=== PATIENT | female | born 1965 | race Caucasian/White ===

== ENCOUNTER 2016-09-16 12:24 | Inpatient (IN) ==
--- NOTE | 2016-09-16 12:49 | Emergency Department Note ---
Disposition Clinical Impression: Colitis, Rectal bleeding Disposition: Admitted As Inpatient Condition: Good Time of Disposition: 17:19 Nausea/Vomiting/Diarrhea HPI - General Chief complaint: ED Nausea/Vomiting/Diarrhea Stated complaint: N/V/D, rectal bleeding Time Seen by Provider: 09/16/16 12:35 Source: patient Mode of arrival: ambulatory Limitations: no limitations Nursing Notes Reviewed: Yes Vital Signs Reviewed: Yes - History of Present Illness HPI Narrative: 51-year-old female history of hypertension, diabetes presents to the ED for nausea and rectal bleeding. Prior to my evaluation patient had an obvious bright red blood with blood clot bowel movement in the toilet. Patient reports earlier today around 8 o'clock patient was feeling nauseated and dry heaving when she passed as a result. She went up to use the bathroom and had some loose diarrhea followed by bright red blood and clots. Since then she has had 3 episodes of passing bright red blood clots. Reports associated lower abdominal cramping. She reports taking meloxicam on a daily basis for the past 2 years as well as Alleve for arthritis. No colonoscopy in the past. No history of colon cancer. No history of bleeding disorder. Reports history of laporascopy for endometriosis several years ago. Dr. Anthony is her PCP. Denies any chest pain, shortness of breath, recent illness, fever, or cough. Denies any urinary symptoms or vaginal bleeding. No history of cardiac disease. Father had CA at age 42. Denies use of anticoagulants. - Related Data Home Medications Medication Instructions Recorded Confirmed Chlorthalidone 25 mg PO DAILY 09/16/16 09/16/16 Dicyclomine [Bentyl] 20 mg PO QID PRN 09/16/16 09/16/16 Fluticasone Propionate Nasal 50 mcg NS DAILY PRN 09/16/16 09/16/16 [Flonase] Insulin Glargine,Hum.rec.anlog 50 unit SQ HS 09/16/16 09/16/16 [Lantus Solostar] Insulin LISPRO [Humalog Kwikpen 0 unit SQ TIDWM 09/16/16 09/16/16 U-100] LORazepam [Ativan] 0.5 mg PO BID PRN 09/16/16 09/16/16 Loratadine [Claritin] 10 mg PO DAILY PRN 09/16/16 09/16/16 Meloxicam [Mobic] 15 mg PO DAILY 09/16/16 09/16/16 Metformin HCl [Metformin HCl ER] 2,000 mg PO DAILY 09/16/16 09/16/16 Pantoprazole Sodium [Protonix] 40 mg PO DAILY 09/16/16 09/16/16 Promethazine [Phenergan] 25 mg PO Q8HR PRN 09/16/16 09/16/16 Simvastatin [Zocor] 20 mg PO HS 09/16/16 09/16/16 Venlafaxine XR (24 HR) [Effexor XR] 150 mg PO DAILY 09/16/16 09/16/16 Allergies Allergy/AdvReac Type Severity Reaction Status Date / Time cefdinir [From Omnicef] Allergy Hives Verified 02/05/16 15:34 fluoxetine [From Prozac] Allergy Hives Verified 02/05/16 15:34 lansoprazole [From Prevacid] Allergy Hives Verified 02/05/16 15:34 clarithromycin [From Biaxin] AdvReac Hives Verified 02/05/16 15:33 All systems ED: reviewed and negative except as stated. Constitutional: Denies: fever, chills Cardiovascular: Denies: chest pain Respiratory: Denies: cough, dyspnea Gastrointestinal: Reports: abdominal pain, nausea, diarrhea, hematochezia. Denies: vomiting, hematemesis Genitourinary: Denies: urgency, dysuria, frequency Integumentary: Denies: rash, abrasion Neurological: Denies: headache, weakness, numbness, paresthesias Psychiatric: Denies: anxiety Hematological/Lymphatic: Denies: easy bleeding Past Medical History - Past Medical History Attestation: Yes The following information was validated with the patient. Source: patient Medical history: Reports: diabetes, hyperlipidemia, hypertension Psychiatric history: Reports: anxiety, depression BIODIESEL TECHNOLOGY MANAGER history: Reports: no BIODIESEL TECHNOLOGY MANAGER history - Social History Smoking Status: Never smoker Smokeless Tobacco Status: No Alcohol use: Reports: rarely Drug use: Reports: none Physical Exam - General Limitations: no limitations General appearance: alert, in no apparent distress - Head Head exam: atraumatic, normocephalic, normal inspection - Eye Eye exam: Present: normal appearance, PERRL, EOMI - ENT ENT exam: normal exam, normal oropharynx, mucous membranes moist - Neck Neck exam: Present: normal inspection, full ROM, trachea midline - Chest Chest inspection: Present: normal inspection, symmetric chest wall rise - Respiratory Respiratory exam: Present: normal lung sounds bilaterally - Cardiovascular Cardiovascular exam: Present: regular rate, normal rhythm, normal heart sounds - Abdominal Exam Abdominal exam: Present: soft, tenderness, normal bowel sounds. Absent: Non- Tender, distention, guarding, rebound, rigidity Abdominal tenderness: Present: suprapubic, diffuse, mild - Rectal Exam Credit Analysis Manager present during exam: Yes Rectal exam: Present: normal inspection, normal rectal tone, heme (+) stool, bloody stool. Absent: hemorrhoids, mass, tenderness, other (NO FISTULAS OR FISSURES) - Extremities Exam Extremities exam: Present: normal inspection, full ROM, normal capillary refill. Absent: tenderness, pedal edema, calf tenderness - Back Exam Back exam: Present: normal inspection, full ROM. Absent: tenderness, CVA tenderness (R), CVA tenderness (L) - Neurological Exam Neurological exam: Present: alert, oriented X3 - Psychiatric Psychiatric exam: Present: normal affect, normal mood - Skin Skin exam: Present: warm, dry, intact, normal color. Absent: rash, cyanosis Course Course Narrative: 51-year-old female presents with rectal bleeding. Prior to my evaluation patient had an obvious bright red blood with blood clots in toilet bowl. She denies any use of anticoagulants. She does report using Meloxicam and Alleve. Patient appears in no acute distress. Vitals are stable. Abdomen is soft and nondistended. She has lower abdominal discomfort and tenderness. Negative McBurney's point negative Rovsing's sign. Rectal exam showed gross bloody stool. The signs of hemorrhoids, fissures, or fistula. Will check her goags, basic labs, hemoglobin, and CT scan. Disposition pending results, may need admission for colonoscopy. - Reevaluation(s) Reevaluation #1: Elevated leukocytosis. Creatinin is 1.36 and appears baseline with prior. CT of the abdomen and pelvis reveals colonic wall thickening and mild colitis. Will treat with flagyl and cipro for possible infectious. This is likely cause for her pain. Hemoglobin is within normal limits. Continues to have multiple episodes of bloody bowel movements. She may need colonoscopy, will consult with Endoscopy Dr. Franco. Patient is in agreement with plan. Time: 14:59 - Consultations Consultation #1: Spoke with Dr. Franco, cannot scope today but can prep for possible scope this weekend. Treating for inflammatory colitis with metronidazole and cipro. IV Protonix given. Time: 15:52 Consultation #2: Spoke with lukas Ledesma to admit for colitis and rectal bleeding with vomiting , no further orders at this time. Time: 16:48 Vital Signs Temperature 97.4 F L 09/16/16 12:27 Pulse Rate 88 09/16/16 12:27 Respiratory Rate 18 09/16/16 12:27 Blood Pressure 152/82 09/16/16 12:27 O2 Sat by Pulse Oximetry 100 09/16/16 12:27 Temperature 97.4 F L 09/16/16 12:27 Pulse Rate 88 09/16/16 12:27 Respiratory Rate 16 09/16/16 17:30 Blood Pressure 167/65 09/16/16 17:30 O2 Sat by Pulse Oximetry 100 09/16/16 12:27 Oxygen Delivery Oxygen Delivery Room Air Nausea/Vomiting/Diarrhea - Medical Records Medical records reviewed: Yes I reviewed the patient's medical records. - Lab Data Lab results reviewed: Yes I reviewed the patient's lab results. Result diagrams: 09/16/16 12:55 09/16/16 12:55 Lab Results 09/16/16 09/16/16 09/16/16 Range/Units 12:55 12:55 12:55 WBC 15.9 H (4.3-11.1) K/mcL RBC 4.68 (3.82-4.97) M/mcL Hgb 13.9 (11.5-15.4) g/dL Hct 41.4 (35.3-44.9) % MCV 88.5 (83.0-100.0) fL MCH 29.7 (28.0-33.3) pg MCHC 33.6 (31.6-35.5) g/dL RDW 13.0 (11.5-14.5) % Plt Count 267 (140-400) K/mcL MPV 9.9 (9.4-12.4) fL Immature Gran % 0.5 (0-4) % Seg Neutrophils % 85.4 % Lymphocytes % 9.1 % Monocytes % 4.5 % Eosinophils % 0.1 % Basophils % 0.4 % Neutrophils # 13.5 H (1.6-8.9) K/mcL Lymphocytes # 1.4 (0.6-4.6) K/mcL Monocytes # 0.7 (0.0-1.3) K/mcL Eosinophils # 0.0 (0.0-0.6) K/mcL Basophils # 0.1 (0.0-0.2) K/mcL PT 11.6 (9.4-12.1) Seconds INR 1.1 APTT 25.3 L (26.0-36.0) Seconds Sodium 138 (136-145) mEq/L Potassium 4.6 H (3.5-4.5) mEq/L Chloride 102 (98-109) mEq/L Carbon Dioxide 22 (19-29) mEq/L BUN 27 H (7-20) mg/dL Creatinine 1.36 H (0.57-1.11) mg/dL Est GFR ( Amer) 49 L (> 60) Est GFR (Non-Af Amer) 41 L (> 60) BUN/Creatinine Ratio 20 (6-26) Glucose 393 H (70-99) mg/dL Calculated Osmolality 307 H (280-300) Calcium 9.9 (8.6-10.8) mg/dL Total Bilirubin 0.3 (0.2-1.2) mg/dL AST 13 (5-34) Units/L ALT 17 (0-55) Units/L Alkaline Phosphatase 98 (38-126) Units/L Serum Total Protein 7.6 (6.0-8.3) g/dL Albumin 4.0 (3.5-5.0) g/dL Globulin 3.6 H (2.4-3.5) g/dL Albumin/Globulin Ratio 1.1 (1.1-2.2) Lipase 67 (8-78) Units/L Urine Color (Yellow) Urine Clarity (Clear) Urine pH (5.0-8.0) pH Units Ur Specific Clifford (1.010-1.025) Urine Protein (Neg-Trace) mg/dL Urine Glucose (UA) (Normal) mg/dL Urine Ketones (Negative) mg/dL Urine Blood (Negative) Urine Nitrite (Negative) Urine Bilirubin (Negative) Urine Urobilinogen (Normal) mg/dL Ur Leukocyte Esterase (Negative) Urine Microscopic RBC (0-3) per hpf Urine Microscopic WBC (0-3) per hpf Ur Squamous Epith Cells (None-Few) per lpf Urine Bacteria (None-Few) per hpf Hyaline Casts (None-Few) per lpf Granular Casts (None Seen) per lpf WBC Casts (None Seen) per lpf Urine Mucus (Few) Ur Culture Indicated? (NO) 09/16/16 Range/Units 14:06 WBC (4.3-11.1) K/mcL RBC (3.82-4.97) M/mcL Hgb (11.5-15.4) g/dL Hct (35.3-44.9) % MCV (83.0-100.0) fL MCH (28.0-33.3) pg MCHC (31.6-35.5) g/dL RDW (11.5-14.5) % Plt Count (140-400) K/mcL MPV (9.4-12.4) fL Immature Gran % (0-4) % Seg Neutrophils % % Lymphocytes % % Monocytes % % Eosinophils % % Basophils % % Neutrophils # (1.6-8.9) K/mcL Lymphocytes # (0.6-4.6) K/mcL Monocytes # (0.0-1.3) K/mcL Eosinophils # (0.0-0.6) K/mcL Basophils # (0.0-0.2) K/mcL PT (9.4-12.1) Seconds INR APTT (26.0-36.0) Seconds Sodium (136-145) mEq/L Potassium (3.5-4.5) mEq/L Chloride (98-109) mEq/L Carbon Dioxide (19-29) mEq/L BUN (7-20) mg/dL Creatinine (0.57-1.11) mg/dL Est GFR ( Amer) (> 60) Est GFR (Non-Af Amer) (> 60) BUN/Creatinine Ratio (6-26) Glucose (70-99) mg/dL Calculated Osmolality (280-300) Calcium (8.6-10.8) mg/dL Total Bilirubin (0.2-1.2) mg/dL AST (5-34) Units/L ALT (0-55) Units/L Alkaline Phosphatase (38-126) Units/L Serum Total Protein (6.0-8.3) g/dL Albumin (3.5-5.0) g/dL Globulin (2.4-3.5) g/dL Albumin/Globulin Ratio (1.1-2.2) Lipase (8-78) Units/L Urine Color Dark Yellow (Yellow) Urine Clarity Cloudy A (Clear) Urine pH 5.5 (5.0-8.0) pH Units Ur Specific Clifford 1.029 H (1.010-1.025) Urine Protein 30 H (Neg-Trace) mg/dL Urine Glucose (UA) >=1000 H (Normal) mg/dL Urine Ketones 15 H (Negative) mg/dL Urine Blood Negative (Negative) Urine Nitrite Negative (Negative) Urine Bilirubin Small H (Negative) Urine Urobilinogen Normal (Normal) mg/dL Ur Leukocyte Esterase Small H (Negative) Urine Microscopic RBC 5-15 H (0-3) per hpf Urine Microscopic WBC 15-30 H (0-3) per hpf Ur Squamous Epith Cells Many H (None-Few) per lpf Urine Bacteria None Seen (None-Few) per hpf Hyaline Casts Many H (None-Few) per lpf Granular Casts Few H (None Seen) per lpf WBC Casts Few H (None Seen) per lpf Urine Mucus Many H (Few) Ur Culture Indicated? YES A (NO) - Radiology Data Radiology results reviewed: Yes I reviewed the patient's radiology results. Abdomen/Pelvis CT 09/16/16 13:46 IMPRESSION: Scattered areas of colonic wall thickening are seen, suggesting mild colitis in the appropriate clinical scenario Tiny nonobstructing right renal stone D/ / Davon Davidson MD / Davon Davidson MD Interpreting Provider: Davon Davidson MD - EKG Data EKG attestation: Yes I reviewed and interpreted this EKG. EKG shows normal: sinus rhythm, axis, intervals, QRS complexes Rate: normal Rhythm: NSR [place]/QRS: normal T wave inversions noted in: II When compared to previous EKG there are: no significant changes Interpretation: no acute changes, normal EKG, unchanged when compared to prior tracing (date) (02/05/16) Attestation Statement - Attestation Attestation: I examined this patient and my medical decision-making was reviewed with the BACKWINDER/PA/Advanced Practice Nurse/Resident Physician. I agree with the documented findings, disposition and treatment plan as described except to the extent set forth below. Patient to the emergency department with abdominal pain vomiting and diarrhea. Patient has felt bad today. States she has had prior food poisoning felt like this. The difference is she is passing bright red blood. One episode prior to arrival and one right after she arrived here. Bright red with clots. On exam she has tenderness over the left side of her abdomen. Plan. CT scans shows a distal colitis. Likely the cause of her bleeding. Hemoglobin stable. Admitted to medicine. Consult to Dr. Franco who also evaluated her in the department.
[2016-09-16] MEDS ORDERED: Ondansetron 4 MG/2 ML VIAL IVP ONE (13:03)
[2016-09-16 13:18] LABS: Basophils # 0.1 K/mcL (0.0-0.2); Basophils % 0.4 %; Eosinophils % 0.1 %; Hematocrit 41.4 % (35.3-44.9); Hemoglobin 13.9 g/dL (11.5-15.4); Immature Granulocytes % 0.5 % (0-4); Lymphocytes # 1.4 K/mcL (0.6-4.6); Lymphocytes % 9.1 %; Mean Corpuscular HGB Conc 33.6 g/dL (31.6-35.5); Mean Corpuscular Hemoglobin 29.7 pg (28.0-33.3); Mean Corpuscular Volume 88.5 fL (83.0-100.0); Mean Platelet Volume 9.9 fL (9.4-12.4); Monocytes # 0.7 K/mcL (0.0-1.3); Monocytes % 4.5 %; Neutrophils # 13.5 K/mcL (1.6-8.9); Platelet Count 267 K/mcL (140-400); Red Blood Count 4.68 M/mcL (3.82-4.97); Segmented Neutrophils % 85.4 %
[2016-09-16 13:25] LABS: Albumin/Globulin Ratio 1.1 (1.1-2.2); Bilirubin,Total 0.3 mg/dL (0.2-1.2); Calcium 9.9 mg/dL (8.6-10.8); Globulin 3.6 g/dL (2.4-3.5); Potassium 4.6 mEq/L (3.5-4.5); Total Protein 7.6 g/dL (6.0-8.3)
[2016-09-16 13:26] LABS: INR 1.1; Prothrombin Time 11.6 Seconds (9.4-12.1)
[2016-09-16 13:29] LABS: Activated Partial Thrombo Time 25.3 Seconds (26.0-36.0)
[2016-09-16 14:14] LABS: Bilirubin,Urine Small (Negative); Blood,Urine Negative (Negative); Clarity,Urine Cloudy (Clear); Color,Urine Dark Yellow (Yellow); Glucose,Urine (UA) >=1000 mg/dL (Normal); Ketones,Urine 15 mg/dL (Negative); Leukocyte Esterase,Urine Small (Negative); Nitrite,Urine Negative (Negative); PH,Urine 5.5 pH Units (5.0-8.0); Protein,Urine 30 mg/dL (Neg-Trace); Specific Gravity,Urine 1.029 (1.010-1.025); Urobilinogen,Urine Normal (Normal)
[2016-09-16 14:16] LABS: Bacteria,Urine None Seen per hpf (None-Few); Squamous Epithelial Cell,Urine Many per lpf (None-Few); WBC,Urine 15-30 per hpf (0-3)
[2016-09-16 14:36] LABS: Granular Casts,Urine Few per lpf (None Seen); Hyaline Casts,Urine Many per lpf (None-Few)
[2016-09-16 14:37] LABS: Mucus,Urine Many (Few); White Blood Cell Casts,Urine Few per lpf (None Seen)
[2016-09-16] MEDS ORDERED: MetroNIDAZOLE 500 MG/100 ML 500 MG/100 ML BAG IVPB ONE (15:06)
[2016-09-16] MEDS ORDERED: Pantoprazole 40 MG VIAL IVP ONE (16:01)
[2016-09-16] MEDS ORDERED: Naloxone 0.4 MG/ML INJ IVP PRN (16:56)
[2016-09-16] MEDS ORDERED: Ondansetron 4 MG/2 ML VIAL IVP PRN (17:01)
[2016-09-16] MEDS ORDERED: D5% in Water 1,000 ML IV PRN (17:08)
[2016-09-16] MEDS ORDERED: Dextrose Gel 15 GM PO PRN ×2 (17:08)
[2016-09-16] MEDS ORDERED: *HR* Dextrose 50 % in Water (Syg) 50 ML SYRINGE IVP PRN (17:08)
--- NOTE | 2016-09-16 17:42 | Internal Med History&Physical ---
Date of Encounter: 09/16/16 Time of Encounter: 17:25 Assessment and Plan (1) Colitis Current visit: Yes Status: Acute Patient with acute colitis. Concern for inflammatory/infectious colitis. Will treat with IV antibiotics. Keep nothing by mouth. IV hydration. Observation in the hospital for now. (2) Rectal bleeding Current visit: Yes Status: Acute Patient having bleeding per rectum. Will monitor blood counts. Patient takes NSAIDs regularly. Will start IV Protonix. She will need upper and lower GI endoscopy once her acute inflammation subsides. At moderate risk for complications. (3) Essential hypertension Current visit: Yes Status: Chronic Monitor blood pressure. Currently elevated likely due to pain. Will continue home medications and follow blood pressure and adjust medications accordingly. (4) Diabetes mellitus Current visit: Yes Status: Chronic Uncontrolled. Blood sugars are currently elevated. Will start sliding scale insulin and long-acting insulin. Monitor blood sugars closely. Patient will be nothing by mouth. Will check blood sugars every 4 hours for now. Qualifiers: Diabetes mellitus type: type 2 Diabetes mellitus complication status: with hyperglycemia Diabetes mellitus technician terminal and repeater insulin use: with technician terminal and repeater use Qualified Code(s): E11.65 - Type 2 diabetes mellitus with hyperglycemia; Z79.4 - group home (current) use of insulin (5) Hyperlipidemia Current visit: Yes Status: Chronic Continue statin. Qualifiers: Hyperlipidemia type: mixed hyperlipidemia Qualified Code(s): E78.2 - Mixed hyperlipidemia Internal Medicine - H&P: HPI Chief complaint: Abdominal pain, nausea or vomiting, diarrhea and bleeding per rectum Admitted From: Emergency Dept Plans for Post Hospital Care: Home History of present illness: Ms. Quevedo is a 51 year old female with history of diabetes, hypertension and hyperlipidemia presented to the ER with complaints of nausea vomiting and diarrhea along with bleeding per rectum. Her symptoms began this morning. Initially she began to have pain rated 7 out of 10 in severity at its worst, in her midabdomen that was cramping in nature. She then had a bowel movement and since then she has been having bleeding per rectum. She had another episode in the ER. She does have heartburn and has been taking Aleve and meloxicam every day. He has never previously had any episodes of bleeding per rectum nor has she had any hematemesis. She has never had a colonoscopy either. She denies any dizziness or lightheadedness. Past Med Surg Social Fam HX - Past Medical History Attestation: Yes The following information was validated with the patient. Medical history: diabetes, hyperlipidemia, hypertension Psychiatric history: anxiety, depression - Social History Smoking Status: Never smoker Smokeless Tobacco Status: No Alcohol use: rarely Drug use: none - Additional Family History Additional family history: Reviewed and found to be noncontributory at this time Internal Medicine - H&P: Meds Chlorthalidone 25 mg PO DAILY 09/16/16 [History] Dicyclomine [Bentyl] 20 mg PO QID PRN 09/16/16 [History] Fluticasone Propionate Nasal [Flonase] 50 mcg NS DAILY PRN 09/16/16 [History] Insulin Glargine,Hum.rec.anlog [Lantus Solostar] 50 unit SQ HS 09/16/16 [History ] Insulin LISPRO [Humalog Kwikpen U-100] 0 unit SQ TIDWM 09/16/16 [History] LORazepam [Ativan] 0.5 mg PO BID PRN 09/16/16 [History] Loratadine [Claritin] 10 mg PO DAILY PRN 09/16/16 [History] Meloxicam [Mobic] 15 mg PO DAILY 09/16/16 [History] Metformin HCl [Metformin HCl ER] 2,000 mg PO DAILY 09/16/16 [History] Pantoprazole Sodium [Protonix] 40 mg PO DAILY 09/16/16 [History] Promethazine [Phenergan] 25 mg PO Q8HR PRN 09/16/16 [History] Simvastatin [Zocor] 20 mg PO HS 09/16/16 [History] Venlafaxine XR (24 HR) [Effexor XR] 150 mg PO DAILY 09/16/16 [History] Allergies cefdinir [From Omnicef] Allergy (Verified 02/05/16 15:34) Hives fluoxetine [From Prozac] Allergy (Verified 02/05/16 15:34) Hives lansoprazole [From Prevacid] Allergy (Verified 02/05/16 15:34) Hives clarithromycin [From Biaxin] Adverse Reaction (Verified 02/05/16 15:33) Hives All Systems PM: A 10-system review of systems was performed and is negative for pertinent findings except as documented above in the HPI. - Constitutional Constitutional: no chills, no fever(s), no night sweats - EENT Eyes: no change in vision, no discharge, no pain, no photophobia Ears: no ear discharge, no ear pain, no tinnitus Nose, mouth and throat: no dysphagia, no nasal discharge, no neck pain, no sore throat - Cardiovascular Cardiovascular ROS IM: no chest pain, no diaphoresis, no dyspnea, no lightheadedness, no palpitations, no syncope - Respiratory Respiratory: no cough, no dyspnea, no wheezing, no excessive phlegm production - Gastrointestinal Gastrointestinal: abdominal pain, diarrhea, hematochezia, nausea, vomiting, no hematemesis, no melena - Genitourinary Genitourinary: no change in urinary stream, no dysuria, no flank pain, no hematuria - Musculoskeletal Musculoskeletal ROS IM: no numbness, no tingling - Integumentary Integumentary IM: no rash, no unusual bruising - Neurological Neurological ROS: no confusion, no convulsions, no focal weakness, no numbness, no tingling, no tremor(s) - Hematologic/Lymphatic Hematologic/Lymphatic: no easy bruising - Constitutional Vitals: Temp Pulse Resp BP Pulse Ox 97.4 F L 88 16 167/65 100 09/16/16 12:27 09/16/16 12:27 09/16/16 17:30 09/16/16 17:30 09/16/16 12:27 General appearance: Present: cooperative, A&O X 3, answers questions appropriately Exam: Moderate distress - Respiratory Respiratory exam: Present: CTAB. Absent: accessory muscle use, rales, rhonchi, wheezes - Cardiovascular Cardiovascular exam: Present: RRR, +S1, +S2. Absent: diastolic murmur, gallop, rubs, systolic murmur - GI/Abdominal GI/Abdominal exam: Present: normal bowel sounds, soft, tenderness (Left Lower quadrant), no peritoneal signs. Absent: distended - Extremities Exam Extremities exam: Present: warm, radial pulses palpable and symetrical. Absent : calf tenderness, cyanotic, pedal edema - Neurological Exam Neurological exam: Present: alert, CN II-XII intact, oriented X3, no focal deficits. Absent: facial droop, speech deficit - Skin Skin exam: Present: dry, intact Internal Med - H&P Results - Labs CBC & Chem 7: 09/16/16 12:55 09/16/16 12:55 - Attending Attestation This document has been at least partially created by [employer] recognition technology by Dr. Velasco. Errors in grammar, wording or other phrases may exist. If errors are found after the documentation is signed, they will be addressed individually in the addendum section of this document when appropriate.
[2016-09-16] MEDS: Pantoprazole 40 MG VIAL IVP SCH (18:28)
--- NOTE | 2016-09-16 18:32 | Internal Medicine Consult Note ---
Date of Encounter: 09/16/16 Time of Encounter: 16:15 - Assessment and Plan (1) Colitis Current Visit: Yes Status: Acute Assessment and plan: Differential includes infectious, IBD, C. Diff, and ischemic. CT does not show diverticulitis. I have explained possible need of Colonoscopy once she improves clinically. I don't believe she can tolerate a bowel prep today. Risk and benefits of Endoscopy have been discussed. She will need stool cultures and C. Diff, as well as fluid resusicitation. (2) Diabetes mellitus Current Visit: Yes Status: Chronic Qualifiers: Diabetes mellitus type: type 2 Diabetes mellitus complication status: with hyperglycemia Diabetes mellitus rat exterminator insulin use: with rat exterminator use Qualified Code(s): E11.65 - Type 2 diabetes mellitus with hyperglycemia; Z79.4 - halfway (current) use of insulin (3) IBS (irritable bowel syndrome) Current Visit: Yes Status: Chronic Qualifiers: Irritable bowel syndrome type: unspecified Qualified Code(s): K58.9 - Irritable bowel syndrome without diarrhea (4) GERD (gastroesophageal reflux disease) Current Visit: Yes Status: Chronic Qualifiers: Qualified Code(s): K21.9 - Gastro-esophageal reflux disease without esophagitis Internal Medicine - CN: HPI - Data of Consult Patient: new to practice Consult date: 09/16/16 Requesting Physician: Fior Mittal MD - Consult Narrative Reason for consult: Abd. Pain and Hematochezia History of present illness: Ms. Quevedo is a 51 year old female who presented to the ED with abd. pain, N/V , and bloody stools with diarrhea. I was initially called by the ED Resident for disposition. Admission most likely going to the Hospitalist. She awoke this AM with pelvic cramping "bad menstrual cramp"; then proceded to have acute diarrhea, then diaphoresis,N/V and subseq. syncope in bed. She later had hematochezia with clots.. this has been witnessed in the ED. No travel, previous bouts of bloody diarrhea.. she does have hx of IBS. This consists of occasional nausea and abd. pain. Her GERD is well controlled. It does appear that she may be on chronic antibiotics looking at her RX hx in e[facility]. Past Med Surg Social Fam HX - Past Medical History Medical history: diabetes, hyperlipidemia, hypertension Psychiatric history: anxiety, depression - Past Surgical History Surgical History: other (Laporoscopy) - Social History Smoking Status: Never smoker Smokeless Tobacco Status: No Alcohol use: rarely Drug use: none - Family History Father Hx Family Cardiac Disorders: Yes Hx Family Endocrine Disorder: Yes (diabetes) - Constitutional Constitutional: anorexia, excessive sweating, no chills, no fever(s) - EENT Nose, mouth and throat: dry mouth, no dysphagia, no facial pain, no neck pain, no sore throat - Cardiovascular Cardiovascular ROS IM: diaphoresis, lightheadedness, syncope, no chest pain, no dyspnea, no irregular heart rhythm, no palpitations - Respiratory Respiratory: no cough, no dyspnea on exertion, no pain on inspiration - Gastrointestinal Gastrointestinal: abdominal pain, change in bowel habits, cramping, diarrhea, fecal incontinence, hematochezia, loose stools, nausea, vomiting, no bloating, no coffee ground emesis, no constipation, no heartburn, no hematemesis - Genitourinary Genitourinary: no dysuria, no flank pain, no urinary frequency, no urinary incontinence, no urinary urgency - Musculoskeletal Musculoskeletal ROS IM: no arthralgias, no muscle cramps, no myalgias, no neck pain - Integumentary Integumentary IM: no erythema, no new lesions Internal Medicine - CN: Meds Chlorthalidone 25 mg PO DAILY 09/16/16 [History] Dicyclomine [Bentyl] 20 mg PO QID PRN 09/16/16 [History] Fluticasone Propionate Nasal [Flonase] 50 mcg NS DAILY PRN 09/16/16 [History] Insulin Glargine,Hum.rec.anlog [Lantus Solostar] 50 unit SQ HS 09/16/16 [History ] Insulin LISPRO [Humalog Kwikpen U-100] 0 unit SQ TIDWM 09/16/16 [History] LORazepam [Ativan] 0.5 mg PO BID PRN 09/16/16 [History] Loratadine [Claritin] 10 mg PO DAILY PRN 09/16/16 [History] Meloxicam [Mobic] 15 mg PO DAILY 09/16/16 [History] Metformin HCl [Metformin HCl ER] 2,000 mg PO DAILY 09/16/16 [History] Pantoprazole Sodium [Protonix] 40 mg PO DAILY 09/16/16 [History] Promethazine [Phenergan] 25 mg PO Q8HR PRN 09/16/16 [History] Simvastatin [Zocor] 20 mg PO HS 09/16/16 [History] Venlafaxine XR (24 HR) [Effexor XR] 150 mg PO DAILY 09/16/16 [History] Allergies cefdinir [From Omnicef] Allergy (Verified 02/05/16 15:34) Hives fluoxetine [From Prozac] Allergy (Verified 02/05/16 15:34) Hives lansoprazole [From Prevacid] Allergy (Verified 02/05/16 15:34) Hives clarithromycin [From Biaxin] Adverse Reaction (Verified 02/05/16 15:33) Hives Internal Medicine - CN: Exam - Constitutional Vitals: Temp Pulse Resp BP Pulse Ox 98.2 F 76 14 187/82 97 09/16/16 18:15 09/16/16 18:15 09/16/16 18:15 09/16/16 18:15 09/16/16 18:15 General appearance IM: Present: cooperative, A&O X 3, pleasant, no acute distress, obese, answers questions appropriately Exam: She does appear as if she does not feel well, she is not toxic in appearance. - Head Head exam: Present: atraumatic, normal inspection - Eye Eye exam: Present: EOMI, normal appearance, PERRL. Absent: scleral icterus - ENT ENT exam: Present: mucous membranes dry - Neck Neck exam general surgery: Present: full ROM, supple, trachea midline. Absent: thyromegaly - Respiratory Respiratory exam: Present: CTAB - Cardiovascular Cardiovascular exam IM: Present: RRR. Absent: irregular rhythm, JVD, tachycardia - GI/Abdominal GI/Abdominal exam IM: Present: diminished bowel sounds, soft, tenderness, no peritoneal signs. Absent: firm, guarding, hepatomegaly, mass, rebound, rigid, splenomegaly - Expanded GI/Abdominal Exam GI/Abdominal exam: Absent: ascites - Rectal Rectal exam: Present: deferred - Extremities Exam Extremities exam IM: Present: normal inspection, warm. Absent: tenderness - Neurological Exam Neurological exam: Present: alert, CN II-XII intact, no focal deficits. Absent : motor sensory deficit Internal Medicine - CN: Reslt - Labs CBC & Chem 7: 0319/17 06:18 09/18/16 06:18 - ABG Interpretation ABG results: PT/INR, D-dimer PT 11.6 Seconds (9.4-12.1) 09/16/16 12:55 Consult Discharge Plan - Plan Referrals: Simeon Anthony MD [Primary Care Provider] -
[2016-09-16 19:05] LABS: Hematocrit 40.8 % (35.3-44.9); Hemoglobin 13.2 g/dL (11.5-15.4)
[2016-09-16] MEDS: Insulin LISPRO 300 UNITS/3 ML VIAL SQ SCH (20:19)
[2016-09-16] MEDS: 0.9 % Sodium Chloride 1,000 ML IVC SCH (20:19)
[2016-09-16 22:49] LABS: Adenovirus F 40/41 PCR Not detected (Not detect); Astrovirus PCR Not detected (Not detect); C.difficile Toxin A/B by PCR Not detected (Not detect); Campylobacter by PCR Not detected (Not detect); Cryptosporidium by PCR Not detected (Not detect); Cyclospora cayetanensis PCR Not detected (Not detect); E. coli O157 by PCR Not detected (Not detect); Entamoeba histolytica PCR Not detected (Not detect); Enteroaggregative E.coli(EAEC) Not detected (Not detect); Enteropathogenic E.coli(EPEC) Not detected (Not detect); Enterotoxigenic E.coli (ETEC) Not detected (Not detect); Giardia lamblia PCR Not detected (Not detect); Norovirus GI/GII PCR Not detected (Not detect); Plesiomonas shigelloides PCR Not detected (Not detect); Rotavirus A PCR Not detected (Not detect); Salmonella PCR Not detected (Not detect); Sapovirus PCR Not detected (Not detect); Shig/EnteroinvasiveE coli EIEC Not detected (Not detect); Shigalike tox-prod E coli STEC Not detected (Not detect); Vibrio PCR Not detected (Not detect); Vibrio cholerae PCR Not detected (Not detect); Yersinia enterocolitica PCR Not detected (Not detect)
[2016-09-17] MEDS: Insulin LISPRO 300 UNITS/3 ML VIAL SQ SCH ×6 (00:03→20:01)
[2016-09-17] MEDS: MetroNIDAZOLE 500 MG/100 ML 500 MG/100 ML BAG IVPB SCH ×3 (00:03→15:49)
[2016-09-17 02:02] LABS: Basophils % 0.2 %; Hemoglobin 13.1 g/dL (11.5-15.4); Immature Granulocytes % 0.4 % (0-4); Lymphocytes # 2.9 K/mcL (0.6-4.6); Lymphocytes % 17.5 %; Mean Corpuscular HGB Conc 33.6 g/dL (31.6-35.5); Mean Corpuscular Hemoglobin 29.6 pg (28.0-33.3); Mean Corpuscular Volume 88.2 fL (83.0-100.0); Mean Platelet Volume 9.5 fL (9.4-12.4); Monocytes # 1.4 K/mcL (0.0-1.3); Monocytes % 8.1 %; Neutrophils # 12.3 K/mcL (1.6-8.9); Platelet Count 257 K/mcL (140-400); Red Blood Count 4.42 M/mcL (3.82-4.97); Segmented Neutrophils % 73.8 %
[2016-09-17 02:13] LABS: Calcium 9.1 mg/dL (8.6-10.8); Potassium 4.3 mEq/L (3.5-4.5)
[2016-09-17] MEDS ORDERED: Scopolamine Patch 1.5 MG PATCH.TD72 TD ONE (03:49)
[2016-09-17] MEDS ORDERED: *HR* Promethazine 25 MG/ML VIAL IVP PRN (03:53)
[2016-09-17] MEDS ORDERED: Ondansetron 4 MG/2 ML VIAL IVP PRN (04:02)
[2016-09-17] MEDS: Metoclopramide 10 MG/2 ML VIAL IVP SCH ×2 (04:48→09:10)
[2016-09-17] MEDS: Pantoprazole 40 MG VIAL IVP SCH ×2 (05:11→17:31)
[2016-09-17] MEDS: 0.9 % Sodium Chloride 1,000 ML IVC SCH (05:11)
[2016-09-17] MEDS ORDERED: Pantoprazole 40 MG VIAL IVP SCH (09:00)
--- NOTE | 2016-09-17 10:15 | Internal Med Progress Note ---
Date of Encounter: 09/17/16 Time of Encounter: 10:13 - Assessment and plan (1) Colitis Current Visit: Yes Status: Acute Assessment and plan: She is better. Infectious PCR panel is negative.. therefore this is most likely ischemic or IBD. Colonoscopy will help differentiate. (2) Diabetes mellitus Current Visit: Yes Status: Chronic Qualifiers: Diabetes mellitus type: type 2 Diabetes mellitus complication status: with hyperglycemia Diabetes mellitus attorney law clerk insulin use: with mcc use Qualified Code(s): E11.65 - Type 2 diabetes mellitus with hyperglycemia; Z79.4 - brand ambassador promotional model (current) use of insulin (3) IBS (irritable bowel syndrome) Current Visit: Yes Status: Chronic Qualifiers: Irritable bowel syndrome type: unspecified Qualified Code(s): K58.9 - Irritable bowel syndrome without diarrhea (4) GERD (gastroesophageal reflux disease) Current Visit: Yes Status: Chronic Qualifiers: Qualified Code(s): K21.9 - Gastro-esophageal reflux disease without esophagitis - Subjective Interval history: She is feeling better this am.. NO abd. cramping. Still with some blood in small amt of bowel movement. Noted 100.0 temp. She is urinating well, no vomiting. Discussed the need for Colonoscopy, risks and benefits were discussed yesterday. Will plan that for 8 AM tomorrow. Will attempt liquids today with minimal bowel prep. - Constitutional Vitals: Temp Pulse Resp BP Pulse Ox 98.2 F 94 16 180/82 96 09/17/16 06:36 09/17/16 06:36 09/17/16 06:36 09/17/16 06:36 09/17/16 06:36 General appearance: Present: cooperative, A&O X 3, pleasant, no acute distress, obese, answers questions appropriately - Respiratory Respiratory exam: Present: CTAB - Cardiovascular Cardiovascular exam: Present: RRR. Absent: clicks, gallop, irregular rhythm, JVD, tachycardia - GI/Abdominal GI/Abdominal exam: Present: normal bowel sounds, soft. Absent: distended (This is a moder. improved bowel exam compared to yest.), firm, guarding, tenderness Internal Medicine: Result - Labs CBC & Chem 7: 09/17/16 01:53 09/17/16 01:53 Labs: Short CBC 09/16/16 09/17/16 Range/Units 18:52 01:53 WBC 16.7 H (4.3-11.1) K/mcL Hgb 13.2 13.1 (11.5-15.4) g/dL Hct 40.8 39.0 (35.3-44.9) % Plt Count 257 (140-400) K/mcL Neutrophils # 12.3 H (1.6-8.9) K/mcL BMP 09/17/16 01:53 Sodium 140 Potassium 4.3 Chloride 106 Carbon Dioxide 24 BUN 28 H Creatinine 1.16 H Glucose 194 H Calcium 9.1 - ABG Interpretation ABG results: PT/INR, D-dimer PT 11.6 Seconds (9.4-12.1) 09/16/16 12:55 - VTE Documentation of Mechanical Device: Intermittent pneumatic compression device Consult Discharge Plan - Plan Referrals: Simeon Anthony MD [Primary Care Provider] -
[2016-09-17] MEDS ORDERED: PEG/Electrolytes/Ascorbic Acid 1 EACH POWD.PACK PO ONE (10:18)
[2016-09-17] MEDS: *HR* Morphine 2 MG/ML SYRINGE IVP PRN ×2 (15:55→22:14)
--- NOTE | 2016-09-17 17:51 | Internal Med Progress Note ---
Date of Encounter: 09/17/16 Time of Encounter: 11:00 - Assessment and plan (1) Colitis Current Visit: Yes Status: Acute Assessment and plan: Patient presented with nausea, vomiting, and diarrhea along with bleeding per rectum that started the morning of admission. She reports sudden onset of abdominal pain, 7 out of 10 in severity, in her mid-abdomen and cramp-type. She then had a bowel movement followed by bleeding per rectum that was witnessed in the ED. CT abdomen and pelvis showed scattered areas of colonic wall thickening. Appreciate Dr Torres input: plan for colonoscopy tomorrow. Continue IV Cipro, IV flagyl, IV fluids, IV PPI and NPO. Patient receiving IV morphine for pain control. (2) Rectal bleeding Current Visit: Yes Status: Acute Assessment and plan: hgb is stable at 13. pt is hemodynamically stable. plan as above. (3) Essential hypertension Current Visit: Yes Status: Chronic Assessment and plan: not controlled due to pain. hydralazine prn if pain meds not helping. (4) Diabetes mellitus Current Visit: Yes Status: Chronic Assessment and plan: sliding scale insuline. NPO Qualifiers: Diabetes mellitus type: type 2 Diabetes mellitus complication status: with hyperglycemia Diabetes mellitus [facility] insulin use: with meterman use Qualified Code(s): E11.65 - Type 2 diabetes mellitus with hyperglycemia; Z79.4 - custodial (current) use of insulin - Subjective Interval history: patient reports no change in abdominal pain but has not requested any pain medications. I explained to patient that she needs to ask her nurse for pain medications. she understood and agreed. - Constitutional Vitals: Temp Pulse Resp BP Pulse Ox 98.0 F 81 16 179/84 99 09/17/16 15:41 09/17/16 15:41 09/17/16 15:41 09/17/16 15:41 09/17/16 15:41 General appearance: Present: cooperative, A&O X 3, pleasant, no acute distress, obese, answers questions appropriately - Eye Eye exam: Present: PERRL, sclera anicteric - Neck Neck exam general surgery: Present: supple, trachea midline. Absent: lymphadenopathy - Respiratory Respiratory exam: Present: CTAB - Cardiovascular Cardiovascular exam: Present: RRR - GI/Abdominal GI/Abdominal exam: Present: normal bowel sounds, soft. Absent: distended, tenderness - Extremities Exam Extremities exam: Absent: joint swelling, pedal edema - Back Exam Back exam: Absent: CVA tenderness (L), CVA tenderness (R) - Neurological Exam Neurological exam: Present: alert, oriented X3. Absent: facial droop, speech deficit - Skin Skin exam: Absent: rash Internal Medicine: Result - Labs CBC & Chem 7: 09/17/16 01:53 09/17/16 01:53 Labs: Short CBC 09/16/16 09/17/16 Range/Units 18:52 01:53 WBC 16.7 H (4.3-11.1) K/mcL Hgb 13.2 13.1 (11.5-15.4) g/dL Hct 40.8 39.0 (35.3-44.9) % Plt Count 257 (140-400) K/mcL Neutrophils # 12.3 H (1.6-8.9) K/mcL BMP 09/17/16 01:53 Sodium 140 Potassium 4.3 Chloride 106 Carbon Dioxide 24 BUN 28 H Creatinine 1.16 H Glucose 194 H Calcium 9.1 - ABG Interpretation ABG results: PT/INR, D-dimer PT 11.6 Seconds (9.4-12.1) 09/16/16 12:55 - VTE Documentation of Mechanical Device: Intermittent pneumatic compression device Consult Discharge Plan - Plan Referrals: Simeon Anthony MD [Primary Care Provider] -
[2016-09-17] MEDS: Acetaminophen 325 MG TABLET PO PRN (22:17)
[2016-09-18] MEDS: Insulin LISPRO 300 UNITS/3 ML VIAL SQ SCH ×6 (00:23→20:49)
[2016-09-18] MEDS: MetroNIDAZOLE 500 MG/100 ML 500 MG/100 ML BAG IVPB SCH ×3 (00:37→15:57)
[2016-09-18] MEDS: Pantoprazole 40 MG VIAL IVP SCH ×2 (03:25→17:25)
[2016-09-18] MEDS: *HR* Morphine 2 MG/ML SYRINGE IVP PRN ×2 (03:49→21:17)
[2016-09-18 06:38] LABS: Basophils # 0.1 K/mcL (0.0-0.2); Basophils % 0.5 %; Eosinophils # 0.1 K/mcL (0.0-0.6); Eosinophils % 0.4 %; Hematocrit 38.2 % (35.3-44.9); Hemoglobin 12.8 g/dL (11.5-15.4); Immature Granulocytes % 0.4 % (0-4); Lymphocytes # 4.1 K/mcL (0.6-4.6); Mean Corpuscular HGB Conc 33.5 g/dL (31.6-35.5); Mean Corpuscular Hemoglobin 30.1 pg (28.0-33.3); Mean Corpuscular Volume 89.9 fL (83.0-100.0); Mean Platelet Volume 9.9 fL (9.4-12.4); Monocytes # 1.3 K/mcL (0.0-1.3); Monocytes % 7.7 %; Neutrophils # 11.4 K/mcL (1.6-8.9); Platelet Count 224 K/mcL (140-400); Red Blood Count 4.25 M/mcL (3.82-4.97); Red Cell Distribution Width 13.1 % (11.5-14.5)
[2016-09-18 06:48] LABS: BUN/Creatinine Ratio 10 (6-26); Calcium 8.7 mg/dL (8.6-10.8); Carbon Dioxide 29 mEq/L (19-29); Chloride 100 mEq/L (98-109); Glucose 219 mg/dL (70-99); Osmolality,Calculated 293 (280-300); Phosphorous 3.5 mg/dL (2.3-4.7); Potassium 3.5 mEq/L (3.5-4.5); Sodium 139 mEq/L (136-145); eGFR For African Americans > 60 (> 60); eGFR For Non-African Americans > 60 (> 60)
[2016-09-18 06:52] LABS: Blood Urea Nitrogen 9 mg/dL (7-20)
[2016-09-18] MEDS ORDERED: *HR* Midazolam HCl 5 MG/5 ML VIAL IVP ONE (07:05)
[2016-09-18] MEDS ORDERED: *HR* FentaNYL (PF) 100 MCG/2 ML VIAL ONE (07:06)
[2016-09-18] MEDS ORDERED: *HR* Midazolam HCl 2 MG/2 ML VIAL IVP PRN (07:54)
[2016-09-18] MEDS ORDERED: Simethicone 40 MG/0.6 ML MLS IR ONE (07:54)
[2016-09-18] MEDS ORDERED: *HR* FentaNYL (PF) 100 MCG/2 ML VIAL IV PRN (07:54)
--- NOTE | 2016-09-18 07:55 | Pre-Sedation Evaluation ---
Pre-sedation evaluation - Pre-sedation checklist Date of procedure: 09/18/16 Procedure: Colonoscopy Recent Vitals: Last Vital Signs Temp 98.0 F 09/18/16 07:03 Pulse 105 09/18/16 07:03 Resp 16 09/18/16 07:03 BP 159/95 09/18/16 07:03 Pulse Ox 99 09/18/16 07:03 H&P (including ROS) documented in medical record: Yes Previous reaction to sedatives/anesthetics: No Dietary Status: NPO 6 hours prior to procedure Airway Assessment: Patient can open mouth completely, TMJ function normal Dentition: No loose teeth or bridges Possible difficult airway: No ASA Classification *see protocol: CLASS II-Mild systemic disease
--- NOTE | 2016-09-18 08:37 | Event Note ---
Date of Encounter: 09/18/16 Time of Encounter: 08:33 Colonoscopy findings consistent with ischemic coliits. She has a discrete, severe areal of inflammation from the Transverse to Descending colon. Biopsies taken. She needs cont. liquid diet, supportive measures and antibiotics. I will start ASA daily. Upon DC, just requires ASA; no more Meloxicam or Aleve. I am leaving town today, but have phone available. The hope is that she will cont. to improve and can be discharged when she has no abd. pain and feeling better. She and the are aware of the slight chance of worsening, if that is the case, she may warrant segmental colectomy. I will follow up Path report as outpt. Will start ASA daily and DVT prohy. with Lovenox.
--- NOTE | 2016-09-18 08:47 | Internal Medicine Consult Note ---
Date of Encounter: 09/18/16 Time of Encounter: 08:46 - Assessment and Plan (1) Acute ischemic colitis Current Visit: Yes Status: Acute (2) Diabetes mellitus Current Visit: Yes Status: Chronic Qualifiers: Diabetes mellitus type: type 2 Diabetes mellitus complication status: with hyperglycemia Diabetes mellitus terminal computer operator insulin use: with terminal computer operator use Qualified Code(s): E11.65 - Type 2 diabetes mellitus with hyperglycemia; Z79.4 - superintendent container terminal (current) use of insulin (3) IBS (irritable bowel syndrome) Current Visit: Yes Status: Chronic Qualifiers: Irritable bowel syndrome type: unspecified Qualified Code(s): K58.9 - Irritable bowel syndrome without diarrhea (4) GERD (gastroesophageal reflux disease) Current Visit: Yes Status: Chronic Qualifiers: Qualified Code(s): K21.9 - Gastro-esophageal reflux disease without esophagitis Internal Medicine - CN: HPI - Data of Consult Requesting Physician: Molly Rodriguez - Consult Narrative History of present illness: Ms. Quevedo is a 51 year old female Past Med Surg Social Fam HX - Past Medical History Medical history: diabetes, hyperlipidemia, hypertension Psychiatric history: anxiety, depression - Past Surgical History Surgical History: other (Laporoscopy) - Social History Smoking Status: Never smoker Smokeless Tobacco Status: No Alcohol use: rarely Drug use: none - Family History Father Hx Family Cardiac Disorders: Yes Hx Family Endocrine Disorder: Yes (diabetes) Internal Medicine - CN: Meds Chlorthalidone 25 mg PO DAILY 09/16/16 [History] Dicyclomine [Bentyl] 20 mg PO QID PRN 09/16/16 [History] Fluticasone Propionate Nasal [Flonase] 50 mcg NS DAILY PRN 09/16/16 [History] Insulin Glargine,Hum.rec.anlog [Lantus Solostar] 50 unit SQ HS 09/16/16 [History ] Insulin LISPRO [Humalog Kwikpen U-100] 0 unit SQ TIDWM 09/16/16 [History] LORazepam [Ativan] 0.5 mg PO BID PRN 09/16/16 [History] Loratadine [Claritin] 10 mg PO DAILY PRN 09/16/16 [History] Meloxicam [Mobic] 15 mg PO DAILY 09/16/16 [History] Metformin HCl [Metformin HCl ER] 2,000 mg PO DAILY 09/16/16 [History] Pantoprazole Sodium [Protonix] 40 mg PO DAILY 09/16/16 [History] Promethazine [Phenergan] 25 mg PO Q8HR PRN 09/16/16 [History] Simvastatin [Zocor] 20 mg PO HS 09/16/16 [History] Venlafaxine XR (24 HR) [Effexor XR] 150 mg PO DAILY 09/16/16 [History] Allergies cefdinir [From Omnicef] Allergy (Verified 02/05/16 15:34) Hives fluoxetine [From Prozac] Allergy (Verified 02/05/16 15:34) Hives lansoprazole [From Prevacid] Allergy (Verified 02/05/16 15:34) Hives clarithromycin [From Biaxin] Adverse Reaction (Verified 02/05/16 15:33) Hives Internal Medicine - CN: Exam - Constitutional Vitals: Temp Pulse Resp BP Pulse Ox 99.0 F 106 16 161/92 96 09/18/16 08:41 09/18/16 08:41 09/18/16 08:41 09/18/16 08:41 09/18/16 08:41 Internal Medicine - CN: Reslt - Labs CBC & Chem 7: 09/18/16 06:18 09/18/16 06:18 Labs: Short CBC 09/18/16 Range/Units 06:18 WBC 17.1 H (4.3-11.1) K/mcL Hgb 12.8 (11.5-15.4) g/dL Hct 38.2 (35.3-44.9) % Plt Count 224 (140-400) K/mcL Neutrophils # 11.4 H (1.6-8.9) K/mcL BMP 09/18/16 06:18 Sodium 139 Potassium 3.5 Chloride 100 Carbon Dioxide 29 BUN 9 D Creatinine 0.91 Glucose 219 H Calcium 8.7 - ABG Interpretation ABG results: PT/INR, D-dimer PT 11.6 Seconds (9.4-12.1) 09/16/16 12:55 Consult Discharge Plan - Plan Referrals: Simeon Anthony MD [Primary Care Provider] -
[2016-09-18] MEDS: Aspirin 81 MG TAB.CHEW PO SCH (09:03)
[2016-09-18] MEDS ORDERED: Magnesium Sulfate 3 GM in D5% in Water 100 ML IVPB STA (12:28)
--- NOTE | 2016-09-18 12:31 | Electrocardiograph Report ---
[address] [address] Test Date: 2016-09-16 Pat Name: Asuncion Quevedo Department: 104 Room: [facility] Gender: F Edge Burnisher: : 1965 Requested By: Siddharth Harding Order Number: [id number] Reading MD: Mamie Flores Measurements Intervals [place] Rate: 70 P: 4 AR: 143 QRS: 33 QRSD: 85 T: 15 QT: 413 QTc: 434 Interpretive Statements SINUS RHYTHM Electronically Signed On 09-18-2016 12:29:19 EDT by Mamie Flores
[2016-09-18] MEDS: DiphenhydraMINE CREAM 28.4 GM TUBE TP PRN (15:55)
--- NOTE | 2016-09-18 17:49 | Internal Med Progress Note ---
Date of Encounter: 09/18/16 Time of Encounter: 12:00 - Assessment and plan (1) Colitis Current Visit: Yes Status: Deleted Assessment and plan: Patient presented with nausea, vomiting, and diarrhea along with bleeding per rectum that started the morning of admission. She reports sudden onset of abdominal pain, 7 out of 10 in severity, in her mid-abdomen and cramp-type. She then had a bowel movement followed by bleeding per rectum that was witnessed in the ED. CT abdomen and pelvis showed scattered areas of colonic wall thickening. Appreciate Dr Torres input: Colonoscopy revealed diffuse severe inflammation characterized by hearing block, congestion, erosions, erythema, free ability, eating her erosions and ulcers vascularity from descending colon to transverse colon. Biopsies taken. Findings in colonoscopy suspect ischemic colitis. Start aspirin. Diet was advanced to liquids. Continue IV Cipro, IV flagyl, IV fluids, IV PPI. Patient receiving IV morphine for pain control. Check lipid profile. (2) Rectal bleeding Current Visit: Yes Status: Acute Assessment and plan: hgb is stable at 13. pt is hemodynamically stable. plan as above. (3) Diabetes mellitus Current Visit: Yes Status: Acute Assessment and plan: Episode of hyperglycemia. Diabetic full liquid diet. Continue sliding scale insulin. Start Levemir 15 units twice daily. Qualifiers: Diabetes mellitus type: type 2 Diabetes mellitus complication status: with hyperglycemia Diabetes mellitus manager long term care insulin use: with manager long term care use Qualified Code(s): E11.65 - Type 2 diabetes mellitus with hyperglycemia; Z79.4 - intermediate project manager (current) use of insulin (4) Essential hypertension Current Visit: Yes Status: Chronic Assessment and plan: not controlled due to pain. hydralazine prn if pain meds not helping. - Subjective Interval history: patient reports her abdominal pain is improved compared to admission. No nausea. No vomiting. - Constitutional Vitals: Temp Pulse Resp BP Pulse Ox 98.5 F 91 16 157/92 98 09/18/16 15:29 09/18/16 15:29 09/18/16 15:29 09/18/16 15:29 09/18/16 15:29 General appearance: Present: cooperative, A&O X 3, pleasant, no acute distress, obese, answers questions appropriately - Eye Eye exam: Present: PERRL, sclera anicteric - Neck Neck exam general surgery: Present: supple, trachea midline. Absent: lymphadenopathy - Respiratory Respiratory exam: Present: CTAB - Cardiovascular Cardiovascular exam: Present: RRR - GI/Abdominal GI/Abdominal exam: Present: normal bowel sounds, soft, tenderness (Mild diffuse abdominal tenderness). Absent: distended - Extremities Exam Extremities exam: Absent: joint swelling, pedal edema - Back Exam Back exam: Absent: CVA tenderness (L), CVA tenderness (R) - Neurological Exam Neurological exam: Present: alert, oriented X3, no focal deficits, strengths equal and symetr throughout. Absent: facial droop, speech deficit - Skin Skin exam: Absent: rash Internal Medicine: Result - Labs CBC & Chem 7: 09/18/16 06:18 09/18/16 06:18 Labs: Short CBC 09/18/16 Range/Units 06:18 WBC 17.1 H (4.3-11.1) K/mcL Hgb 12.8 (11.5-15.4) g/dL Hct 38.2 (35.3-44.9) % Plt Count 224 (140-400) K/mcL Neutrophils # 11.4 H (1.6-8.9) K/mcL BMP 09/18/16 06:18 Sodium 139 Potassium 3.5 Chloride 100 Carbon Dioxide 29 BUN 9 D Creatinine 0.91 Glucose 219 H Calcium 8.7 - ABG Interpretation ABG results: PT/INR, D-dimer PT 11.6 Seconds (9.4-12.1) 09/16/16 12:55 - VTE Documentation of Mechanical Device: Intermittent pneumatic compression device Consult Discharge Plan - Plan Referrals: Simeon Anthony MD [Primary Care Provider] -
[2016-09-18] MEDS ORDERED: Insulin DETEMIR 100 UNIT/ML X5UNITS SQ SCH (18:00)
[2016-09-18] MEDS: Insulin DETEMIR 100 UNIT/ML X5UNITS SQ SCH (20:49)
[2016-09-18] MEDS: Venlafaxine XR (24 HR) 150 MG CAP.ER.24H PO SCH (21:17)
[2016-09-19] MEDS: MetroNIDAZOLE 500 MG/100 ML 500 MG/100 ML BAG IVPB SCH ×4 (00:09→23:36)
[2016-09-19] MEDS: Insulin LISPRO 300 UNITS/3 ML VIAL SQ SCH ×4 (00:18→17:14)
[2016-09-19 05:31] LABS: Basophils # 0.1 K/mcL (0.0-0.2); Basophils % 0.7 %; Eosinophils # 0.3 K/mcL (0.0-0.6); Eosinophils % 2.2 %; Hematocrit 35.7 % (35.3-44.9); Hemoglobin 11.6 g/dL (11.5-15.4); Immature Granulocytes % 0.4 % (0-4); Lymphocytes # 3.7 K/mcL (0.6-4.6); Lymphocytes % 30.8 %; Mean Corpuscular HGB Conc 32.5 g/dL (31.6-35.5); Mean Corpuscular Hemoglobin 28.9 pg (28.0-33.3); Mean Platelet Volume 9.7 fL (9.4-12.4); Monocytes # 0.9 K/mcL (0.0-1.3); Monocytes % 7.5 %; Platelet Count 212 K/mcL (140-400); Red Blood Count 4.01 M/mcL (3.82-4.97); Red Cell Distribution Width 12.7 % (11.5-14.5); Segmented Neutrophils % 58.4 %
[2016-09-19 05:44] LABS: BUN/Creatinine Ratio 9 (6-26); Blood Urea Nitrogen 7 mg/dL (7-20); Calcium 8.5 mg/dL (8.6-10.8); Carbon Dioxide 29 mEq/L (19-29); Chloride 101 mEq/L (98-109); Chol/HDL Ratio 3.3 (0-4.9); Cholesterol 168 mg/dL (< 200); Glucose 125 mg/dL (70-99); HDL Cholesterol 51 mg/dL (40-59); LDL Cholesterol,Calculated 103 mg/dL (0-99); Magnesium 1.2 mg/dL (1.6-2.6); Osmolality,Calculated 287 (280-300); Potassium 3.3 mEq/L (3.5-4.5); Sodium 139 mEq/L (136-145); Triglycerides 68 mg/dL (< 150); eGFR For African Americans > 60 (> 60); eGFR For Non-African Americans > 60 (> 60)
[2016-09-19] MEDS: *HR* Enoxaparin 40 MG/0.4 ML SYRINGE SQ SCH (05:49)
[2016-09-19] MEDS: Acetaminophen 325 MG TABLET PO PRN (05:55)
[2016-09-19] MEDS: DiphenhydraMINE CREAM 28.4 GM TUBE TP PRN (06:01)
[2016-09-19] MEDS: Pantoprazole 40 MG VIAL IVP SCH (06:58)
[2016-09-19] MEDS: Aspirin 81 MG TAB.CHEW PO SCH (07:54)
[2016-09-19] MEDS: Venlafaxine XR (24 HR) 150 MG CAP.ER.24H PO SCH (07:54)
[2016-09-19] MEDS ORDERED: Magnesium Sulfate 3 GM in D5% in Water 100 ML IVPB STA (07:59)
[2016-09-19] MEDS ORDERED: *HR* HYDROcodone/Acet 7.5/325 mg TABLET PO PRN (08:00)
[2016-09-19] MEDS: Insulin DETEMIR 100 UNIT/ML X5UNITS SQ SCH ×2 (08:18→21:01)
[2016-09-19] MEDS ORDERED: *HR* Morphine 2 MG/ML SYRINGE IVP PRN (09:16)
--- NOTE | 2016-09-19 16:03 | Internal Med Progress Note ---
Date of Encounter: 09/19/16 Time of Encounter: 09:45 - Assessment and plan (1) Colitis Current Visit: Yes Status: Deleted Assessment and plan: Patient presented with nausea, vomiting, and diarrhea along with bleeding per rectum that started the morning of admission. She reports sudden onset of abdominal pain, 7 out of 10 in severity, in her mid-abdomen and cramp-type. She then had a bowel movement followed by bleeding per rectum that was witnessed in the ED. CT abdomen and pelvis showed scattered areas of colonic wall thickening. triglycerides 68. Appreciate Dr Torres input: Colonoscopy revealed diffuse severe inflammation characterized by adherent blood, congestion, erosions, erythema, free ability, eating her erosions and ulcers vascularity from descending colon to transverse colon. Biopsies taken. Findings in colonoscopy suspect ischemic colitis. patient is clinically improving very slowly. continue aspirin. Advance diet to soft and if she tolerates diet and has a non-bloody BM I will send her home. Continue IV Cipro, IV flagyl, IV fluids, IV PPI, aspirin. Patient receiving IV morphine for pain control. (2) Rectal bleeding Current Visit: Yes Status: Acute Assessment and plan: hgb is stable at 13. pt is hemodynamically stable. plan as above. (3) Hypomagnesemia Current Visit: Yes Status: Acute Assessment and plan: severe hypomagnesemia. replace with Iv magnesium. (4) Diabetes mellitus Current Visit: Yes Status: Acute Assessment and plan: Episode of hyperglycemia on admission, now fasting glucose is 125. Diabetic soft diet. Continue sliding scale insulin and Levemir 15 units twice daily. Qualifiers: Diabetes mellitus type: type 2 Diabetes mellitus complication status: with hyperglycemia Diabetes mellitus halfway insulin use: with halfway use Qualified Code(s): E11.65 - Type 2 diabetes mellitus with hyperglycemia; Z79.4 - correction (current) use of insulin (5) Essential hypertension Current Visit: Yes Status: Chronic Assessment and plan: not controlled due to pain. hydralazine prn if pain meds not helping. - Subjective Interval history: Patient reports her abdominal pain is still there. She had bloody bowel movements yesterday evening, no bowel movement since then. she ate all her dinner tray. No nausea. No vomiting. - Constitutional Vitals: Temp Pulse Resp BP Pulse Ox 98.1 F 94 16 134/81 97 09/19/16 15:41 09/19/16 15:41 09/19/16 15:41 09/19/16 15:41 09/19/16 15:41 General appearance: Present: cooperative, A&O X 3, pleasant, no acute distress, obese, answers questions appropriately - Eye Eye exam: Present: PERRL, sclera anicteric - Neck Neck exam general surgery: Present: supple, trachea midline. Absent: lymphadenopathy - Respiratory Respiratory exam: Present: CTAB - Cardiovascular Cardiovascular exam: Present: RRR - GI/Abdominal GI/Abdominal exam: Present: normal bowel sounds, soft, tenderness. Absent: distended - Extremities Exam Extremities exam: Absent: pedal edema - Back Exam Back exam: Absent: CVA tenderness (L), CVA tenderness (R) - Neurological Exam Neurological exam: Present: alert, oriented X3, no focal deficits, strengths equal and symetr throughout. Absent: facial droop, speech deficit - Skin Skin exam: Absent: rash Internal Medicine: Result - Labs CBC & Chem 7: 09/19/16 05:01 09/19/16 05:01 Labs: Short CBC 09/19/16 Range/Units 05:01 WBC 11.9 H (4.3-11.1) K/mcL Hgb 11.6 (11.5-15.4) g/dL Hct 35.7 (35.3-44.9) % Plt Count 212 (140-400) K/mcL Neutrophils # 7.0 (1.6-8.9) K/mcL BMP 09/19/16 05:01 Sodium 139 Potassium 3.3 L Chloride 101 Carbon Dioxide 29 BUN 7 Creatinine 0.77 Glucose 125 H Calcium 8.5 L - ABG Interpretation ABG results: PT/INR, D-dimer PT 11.6 Seconds (9.4-12.1) 09/16/16 12:55 - VTE Documentation of Mechanical Device: Intermittent pneumatic compression device Consult Discharge Plan - Plan Referrals: Simeon Anthony MD [Primary Care Provider] -
[2016-09-19] MEDS ORDERED: Insulin LISPRO 300 UNITS/3 ML VIAL SQ SCH (21:00)
[2016-09-20] MEDS: *HR* Enoxaparin 40 MG/0.4 ML SYRINGE SQ SCH (05:48)
[2016-09-20 06:35] VITALS: BP 157/81
[2016-09-20 06:47] LABS: Basophils # 0.1 K/mcL (0.0-0.2); Eosinophils # 0.2 K/mcL (0.0-0.6); Hemoglobin 11.1 g/dL (11.5-15.4); Immature Granulocytes % 0.7 % (0-4); Lymphocytes # 3.2 K/mcL (0.6-4.6); Lymphocytes % 39.3 %; Mean Corpuscular HGB Conc 33.6 g/dL (31.6-35.5); Mean Corpuscular Hemoglobin 29.8 pg (28.0-33.3); Mean Corpuscular Volume 88.7 fL (83.0-100.0); Mean Platelet Volume 10.1 fL (9.4-12.4); Monocytes # 0.7 K/mcL (0.0-1.3); Monocytes % 8.5 %; Neutrophils # 3.9 K/mcL (1.6-8.9); Platelet Count 231 K/mcL (140-400); Red Blood Count 3.72 M/mcL (3.82-4.97); Red Cell Distribution Width 12.7 % (11.5-14.5); Segmented Neutrophils % 47.5 %
[2016-09-20 07:10] LABS: BUN/Creatinine Ratio 13 (6-26); Blood Urea Nitrogen 10 mg/dL (7-20); Calcium 8.5 mg/dL (8.6-10.8); Carbon Dioxide 28 mEq/L (19-29); Chloride 104 mEq/L (98-109); Glucose 169 mg/dL (70-99); Magnesium 1.6 mg/dL (1.6-2.6); Osmolality,Calculated 295 (280-300); Potassium 3.7 mEq/L (3.5-4.5); Sodium 141 mEq/L (136-145); eGFR For African Americans > 60 (> 60); eGFR For Non-African Americans > 60 (> 60)
--- NOTE | 2016-09-20 07:37 | Discharge Summary ---
Date of Encounter: 09/20/16 Time of Encounter: 07:34 - Discharge Diagnosis (1) Colitis Priority: Primary Status: Deleted (2) Rectal bleeding Priority: Primary Status: Acute (3) Hypomagnesemia Priority: Primary Status: Acute (4) Diabetes mellitus Priority: Secondary Status: Chronic Qualifiers: Diabetes mellitus type: type 2 Diabetes mellitus complication status: with hyperglycemia Diabetes mellitus bar catcher insulin use: with group home use Qualified Code(s): E11.65 - Type 2 diabetes mellitus with hyperglycemia; Z79.4 - residential (current) use of insulin (5) Essential hypertension Priority: Secondary Status: Chronic - Discharge Medications Prescriptions: HYDROcodone/Acet 7.5/325 mg [[place]angeloth 7.5-325 mg] 1 tab PO Q6HR PRN #7 tablet PRN Reason: Pain Amlodipine [Norvasc] 5 mg PO DAILY #30 tablet Aspirin 81 mg PO DAILY #30 tab.chew Ciprofloxacin [Cipro] 500 mg PO BID #12 tablet MetroNIDAZOLE [Flagyl] 500 mg PO TID #18 tablet Home Medications: Fluticasone Propionate Nasal [Flonase] 50 mcg NS DAILY PRN 09/16/16 [History] Insulin Glargine,Hum.rec.anlog [Lantus Solostar] 50 unit SQ HS 09/16/16 [History ] Insulin LISPRO [Humalog Kwikpen U-100] 0 unit SQ TIDWM 09/16/16 [History] LORazepam [Ativan] 0.5 mg PO BID PRN 09/16/16 [History] Loratadine [Claritin] 10 mg PO DAILY PRN 09/16/16 [History] Metformin HCl [Metformin HCl ER] 2,000 mg PO DAILY 09/16/16 [History] Pantoprazole Sodium [Protonix] 40 mg PO DAILY 09/16/16 [History] Promethazine [Phenergan] 25 mg PO Q8HR PRN 09/16/16 [History] Simvastatin [Zocor] 20 mg PO HS 09/16/16 [History] Venlafaxine XR (24 HR) [Effexor Xr] 150 mg PO DAILY 09/16/16 [History] Amlodipine [Norvasc] 5 mg PO DAILY #30 tablet 09/20/16 [Rx] Aspirin 81 mg PO DAILY #30 tab.chew 09/20/16 [Rx] Ciprofloxacin [Cipro] 500 mg PO BID #12 tablet 09/20/16 [Rx] HYDROcodone/Acet 7.5/325 mg [[place] 7.5-325 mg] 1 tab PO Q6HR PRN #7 tablet 09/20 [Rx] MetroNIDAZOLE [Flagyl] 500 mg PO TID #18 tablet 09/20/16 [Rx] Allergies/Adverse Reactions: Allergies cefdinir [From Omnicef] Allergy (Verified 02/05/16 15:34) Hives fluoxetine [From Prozac] Allergy (Verified 02/05/16 15:34) Hives lansoprazole [From Prevacid] Allergy (Verified 02/05/16 15:34) Hives clarithromycin [From Biaxin] Adverse Reaction (Verified 02/05/16 15:33) Hives Date of admission: 09/18/16 17:08 Primary care physician: Simeon Anthony MD - Patient Status Disposition: Home, Self-Care Condition: Good Functional capacity at discharge: independent ambulation Overall status at discharge: patient is progressing back to baseline - Discharge Instructions Follow Up With: Simeon Anthony MD [Primary Care Provider] - 10/06/16 2:30 pm (f/u in 1 week) Forms: Work/School Release Additional Instructions: check your blood sugars before meals and at bedtime, bring numbers to doctors appt check your blood pressure daily, bring numbers to doctors appt follow a soft diabetic diet for at least 2 weeks drink plenty of fluids, at least 2 liters per day - Diet and Activity Activity: return to work once cleared by your PCP/specialist, resume usual activities as tolerated Diet: diabetic diet, low fat, low cholesterol, low salt diet, other (soft diet) Interval History: No bloody bowel movement. She ate well and has not use any IV pain medications in the past 12 hours. She is eager to go home. Hospital course: Ms. Quevedo is a 51 year old female with past medical history of diabetes mellitus, and hypertension who presented with nausea, vomiting, and diarrhea along with bleeding per rectum that started the morning of admission. She reported sudden onset of abdominal pain, 7 out of 10 in severity, in her mid- abdomen and cramp-type. She then had a bowel movement followed by bleeding per rectum that was witnessed in the ED. CT abdomen and pelvis showed scattered areas of colonic wall thickening. LDL 103. triglycerides 68. Colonoscopy revealed diffuse severe inflammation characterized by adherent blood , congestion, erosions, erythema, free ability, eating her erosions and ulcers vascularity from descending colon to transverse colon. Biopsies taken. Findings in colonoscopy suspect ischemic colitis. Patient was treated for acute colitis suspected ischemic colitis with IV fluids , aspirin, continue home dose of simvastatin with clinical improvement. The day of discharge she was tolerating well diet and having no more bloody bowel movements. PLAN : She will continue Cipro and Flagyl for a total of 7 days. Follow-up with primary care physician for diabetes. Considering increasing dose of simvastatin after completing antibiotics. - Time Spent with Patient Total time spent providing and/or coordinating discharge services: - Constitutional Vitals: Temp Pulse Resp BP Pulse Ox 98.2 F 84 18 157/81 93 L 09/20/16 06:32 09/20/16 06:32 09/20/16 06:32 09/20/16 06:32 09/20/16 06:32 General appearance: Present: cooperative, A&O X 3, pleasant, no acute distress, obese, answers questions appropriately - Eye Eye exam: Present: PERRL, sclera anicteric - Neck Neck exam general surgery: Present: supple, trachea midline. Absent: lymphadenopathy - Respiratory Respiratory exam: Present: CTAB - Cardiovascular Cardiovascular exam: Present: RRR - GI/Abdominal GI/Abdominal exam: Present: normal bowel sounds, soft. Absent: distended, tenderness - Extremities Exam Extremities exam: Present: pedal edema - Back Exam Back exam: Absent: CVA tenderness (L), CVA tenderness (R) - Neurological Exam Neurological exam: Present: alert, oriented X3. Absent: facial droop, speech deficit - Skin Skin exam: Absent: rash - VTE Documentation of Mechanical Device: Intermittent pneumatic compression device
[2016-09-20] MEDS ORDERED: amLODIPine 5 MG TABLET PO SCH (08:00)
== END 2016-09-20 08:54 | disposition home or self-care (01) | DRG 394 ==
LOC: 3NENU 12:24 → EMEROO 12:24 → SUATTDRO 17:05 → 3NENU 17:46
PROVIDERS: ADMIT Internal Medicine; ATTEND Internal Medicine
PROC: ENDOCBX (2016-09-18 08:00)

== ENCOUNTER 2017-11-11 10:05 | Observation (INO) ==
[2017-11-11] MEDS ORDERED: 0.9 % Sodium Chloride 1,000 ML IVC ONE (11:20)
[2017-11-11] MEDS ORDERED: Isovue-370 500 ML INFUS..BTL IV ONE (11:20)
--- NOTE | 2017-11-11 11:38 | Emergency Department Note ---
Disposition Clinical Impression: Rectal bleeding, Colitis Disposition: Admitted As Inpatient Condition: Good Instructions: Gastrointestinal Bleeding (ED) Referrals: Simeon Anthony MD [Primary Care Provider] - Forms: ED Satisfaction Letter, Work/School Release Time of Disposition: 15:00 General Adult HPI - General Chief complaint: ED General Medical Stated complaint: General Time Seen by Provider: 11/11/17 10:23 Source: patient Mode of arrival: ambulatory Limitations: no limitations Nursing Notes Reviewed: Yes Vital Signs Reviewed: Yes - History of Present Illness HPI Narrative: 52-year-old female presents emergency Department with concerns of abdominal pain , hematochezia and syncope. Patient states she was on the toilet having liquid brown diarrhea when she syncopized, striking her head against the bathtub. Patient states that she was likely unconscious for less than a minute. When she awoke she had further episodes of diarrhea which were grossly bloody. Patient denies fever, chills, nausea, vomiting, chest pain, shortness of breath. Patient states she felt mildly fatigued last night but did not have any episodes of vomiting or diarrhea last night. This happened her once before with an episode which was diagnosed as ischemic colitis, she follows Dr. Franco for her GI care. Pain Scale: 5 - Related Data Home Medications Medication Instructions Recorded Confirmed Insulin Glargine,Hum.rec.anlog 50 unit SQ HS 09/16/16 01/12/17 [Lantus Solostar] Insulin LISPRO [Humalog Kwikpen 0 unit SQ TIDWM 09/16/16 01/12/17 U-100] LORazepam [Ativan] 0.5 mg PO BID PRN 09/16/16 01/12/17 Loratadine [Claritin] 10 mg PO DAILY PRN 09/16/16 01/12/17 Metformin HCl [Metformin HCl ER] 2,000 mg PO DAILY 09/16/16 01/12/17 Pantoprazole Sodium [Protonix] 40 mg PO DAILY 09/16/16 01/12/17 Simvastatin [Zocor] 20 mg PO HS 09/16/16 01/12/17 Venlafaxine XR (24 HR) [Effexor Xr] 150 mg PO DAILY 09/16/16 01/12/17 Aspirin [Lo-Dose Aspirin EC] 81 mg PO DAILY 07/13/17 07/13/17 Chlorthalidone 25 mg PO DAILY 01/12/17 01/12/17 Dicyclomine [Bentyl] 20 mg PO QID 01/12/17 01/12/17 Allergies Allergy/AdvReac Type Severity Reaction Status Date / Time cefdinir [From Omnicef] Allergy Hives Verified 01/12/17 01:19 fluoxetine [From Prozac] Allergy Hives Verified 01/12/17 01:19 lansoprazole [From Prevacid] Allergy Hives Verified 01/12/17 01:19 clarithromycin [From Biaxin] AdvReac Hives Verified 01/12/17 01:19 All systems ED: reviewed and negative except as stated. Review of Systems: As Per [facility] Past Medical History - Past Medical History Attestation: Yes The following information was validated with the patient. Source: patient Medical history: Reports: diabetes, hyperlipidemia, hypertension Surgical history: Reports: other (Laporoscopy) Psychiatric history: Reports: anxiety, depression DEVELOPMENT TRAINER history: Reports: no DEVELOPMENT TRAINER history - Social History Smoking Status: Never smoker Smokeless Tobacco Status: No Alcohol use: Reports: rarely Drug use: Reports: none Physical Exam General: Alert and in no acute distress Skin: Warm, dry, intact. small abrasion to the L nasal bridge Head: Normocephalic ENT: No tenderness to palpation of the zygomatic arch, forehead or maxilla. Teeth align well with opening and closing of mouth. No laxity of teeth Neck: Cervical spine cleared and collar removed using radiograph and clinical evidence. Nexus criteria negative, patient is clinically sober, answering all questions appropriately, denies midline pain, distracting injury, radiating pain , or focal deficits. Patient able to move neck in all directions without pain Cardiovascular: RRR, no murmur, normal perfusion Respiratory: CTAB, no wheezing, cough, or respiratory distress Musculoskeletal: Normal strength, no tenderness, swelling or deformity GI: Soft, mild ttp of the bilateral lower quadrant and suprapubic area. nondistended. Bowel sounds present Neuro: A&O to person, place, time and situation. No focal deficits noted on exam Psychiatric: cooperative and appropriate mood and affect. - General General appearance: alert, in no apparent distress Course Vital Signs Temperature 98.1 F 11/11/17 10:08 Pulse Rate 96 11/11/17 10:08 Respiratory Rate 16 11/11/17 10:08 Blood Pressure 138/63 11/11/17 10:08 O2 Sat by Pulse Oximetry 100 11/11/17 10:08 Temperature 98.1 F 11/11/17 10:08 Pulse Rate 98 11/11/17 13:36 Respiratory Rate 12 11/11/17 13:36 Blood Pressure 172/90 11/11/17 13:36 O2 Sat by Pulse Oximetry 94 11/11/17 13:36 Oxygen Delivery Oxygen Delivery Room Air Medical Decision Making - MDM Narrative Medical decision making narrative: CT showed evidence of left hepatic flexure colitis. Patient had another episode of hematochezia with bright red diarrhea in the emergency department. Patient blood pressure elevated however she did not take her lisinopril this morning. Patient hemoglobin is within normal limits and does not need transfusion at this time. Patient came close to requiring transfusion during her previous episode of colitis. She was given antibiotics in the emergency department and patient agreed to admission to the hospital for further care and evaluation. - Medical Records Medical records reviewed: Yes I reviewed the patient's medical records. - Lab Data Lab results reviewed: Yes I reviewed the patient's lab results. Result diagrams: 11/11/17 11:20 11/11/17 11:20 Lab Results 11/11/17 11/11/17 11/11/17 Range/Units 11:20 11:20 11:20 WBC 13.5 H (4.3-11.1) K/mcL RBC 4.90 (3.82-4.97) M/mcL Hgb 14.2 (11.5-15.4) g/dL Hct 42.6 (35.3-44.9) % MCV 86.9 (83.0-100.0) fL MCH 29.0 (28.0-33.3) pg MCHC 33.3 (31.6-35.5) g/dL RDW 12.8 (11.5-14.5) % Plt Count 319 (140-400) K/mcL MPV 10.0 (9.4-12.4) fL Immature Gran % 0.4 (0-4) % Seg Neutrophils % 89.0 % Lymphocytes % 6.7 % Monocytes % 3.3 % Eosinophils % 0.0 % Basophils % 0.6 % Neutrophils # 12.0 H (1.6-8.9) K/mcL Lymphocytes # 0.9 (0.6-4.6) K/mcL Monocytes # 0.4 (0.0-1.3) K/mcL Eosinophils # 0.0 (0.0-0.6) K/mcL Basophils # 0.1 (0.0-0.2) K/mcL PT 10.9 (9.4-12.1) Seconds INR 1.0 APTT 23.9 L (26.0-36.0) Seconds Sodium 136 (136-145) mEq/L Potassium 4.3 (3.5-5.1) mEq/L Chloride 102 (98-107) mEq/L Carbon Dioxide 20 L (23-29) mEq/L BUN 21 H (6-20) mg/dL Creatinine 0.89 (0.60-1.20) mg/dL Est GFR ( Amer) > 60 (> 60) Est GFR (Non-Af Amer) > 60 (> 60) BUN/Creatinine Ratio 24 (6-26) Glucose 487 H (70-105) mg/dL Calculated Osmolality 307 H (280-300) Calcium 9.8 (8.6-10.3) mg/dL Total Bilirubin 0.5 (0.3-1.0) mg/dL Direct Bilirubin 0.1 (0.0-0.2) mg/dL Indirect Bilirubin 0.4 (0.0-1.2) mg/dL AST 12 L (13-39) Units/L ALT 15 (7-52) Units/L Alkaline Phosphatase 120 H (34-104) Units/L Troponin I < 0.03 (< 0.04) ng/mL Serum Total Protein 7.5 (6.4-8.9) g/dL Albumin 4.5 (3.5-5.7) g/dL Globulin 3.0 (2.4-3.5) g/dL Albumin/Globulin Ratio 1.5 (1.1-2.2) Lipase 76 (11-82) Units/L Urine Color (Yellow) Urine Clarity (Clear) Urine pH (5.0-8.0) pH Units Ur Specific [place] (1.010-1.025) Urine Protein (Neg-Trace) mg/dL Urine Glucose (UA) (Normal) mg/dL Urine Ketones (Negative) mg/dL Urine Blood (Negative) Urine Nitrite (Negative) Urine Bilirubin (Negative) Urine Urobilinogen (Normal) mg/dL Ur Leukocyte Esterase (Negative) Ur Culture Indicated? (NO) Stool Occult Blood (Negative) 11/11/17 11/11/17 Range/Units 11:28 12:23 WBC (4.3-11.1) K/mcL RBC (3.82-4.97) M/mcL Hgb (11.5-15.4) g/dL Hct (35.3-44.9) % MCV (83.0-100.0) fL MCH (28.0-33.3) pg MCHC (31.6-35.5) g/dL RDW (11.5-14.5) % Plt Count (140-400) K/mcL MPV (9.4-12.4) fL Immature Gran % (0-4) % Seg Neutrophils % % Lymphocytes % % Monocytes % % Eosinophils % % Basophils % % Neutrophils # (1.6-8.9) K/mcL Lymphocytes # (0.6-4.6) K/mcL Monocytes # (0.0-1.3) K/mcL Eosinophils # (0.0-0.6) K/mcL Basophils # (0.0-0.2) K/mcL PT (9.4-12.1) Seconds INR APTT (26.0-36.0) Seconds Sodium (136-145) mEq/L Potassium (3.5-5.1) mEq/L Chloride (98-107) mEq/L Carbon Dioxide (23-29) mEq/L BUN (6-20) mg/dL Creatinine (0.60-1.20) mg/dL Est GFR ( Amer) (> 60) Est GFR (Non-Af Amer) (> 60) BUN/Creatinine Ratio (6-26) Glucose (70-105) mg/dL Calculated Osmolality (280-300) Calcium (8.6-10.3) mg/dL Total Bilirubin (0.3-1.0) mg/dL Direct Bilirubin (0.0-0.2) mg/dL Indirect Bilirubin (0.0-1.2) mg/dL AST (13-39) Units/L ALT (7-52) Units/L Alkaline Phosphatase (34-104) Units/L Troponin I (< 0.04) ng/mL Serum Total Protein (6.4-8.9) g/dL Albumin (3.5-5.7) g/dL Globulin (2.4-3.5) g/dL Albumin/Globulin Ratio (1.1-2.2) Lipase (11-82) Units/L Urine Color Yellow (Yellow) Urine Clarity Clear (Clear) Urine pH 5.5 (5.0-8.0) pH Units Ur Specific [place] > 1.030 H (1.010-1.025) Urine Protein Negative (Neg-Trace) mg/dL Urine Glucose (UA) >=1000 H (Normal) mg/dL Urine Ketones 40 H (Negative) mg/dL Urine Blood Negative (Negative) Urine Nitrite Negative (Negative) Urine Bilirubin Negative (Negative) Urine Urobilinogen Normal (Normal) mg/dL Ur Leukocyte Esterase Negative (Negative) Ur Culture Indicated? NO (NO) Stool Occult Blood Positive A (Negative) - Radiology Data Radiology results reviewed: Yes I reviewed the patient's radiology results. - EKG Data EKG #1 EKG attestation: Yes I reviewed and interpreted this EKG. EKG results narrative: ECG - interpreted by ED physician. Rate 88, normal sinus rhythm, no STEMI, UT, QT intervals, and QRS within normal limits
[2017-11-11 11:44] LABS: Bilirubin,Urine Negative (Negative); Blood,Urine Negative (Negative); Clarity,Urine Clear (Clear); Color,Urine Yellow (Yellow); Glucose,Urine (UA) >=1000 mg/dL (Normal); Ketones,Urine 40 mg/dL (Negative); Leukocyte Esterase,Urine Negative (Negative); Nitrite,Urine Negative (Negative); PH,Urine 5.5 pH Units (5.0-8.0); Protein,Urine Negative (Neg-Trace); Specific Gravity,Urine > 1.030 (1.010-1.025); Urobilinogen,Urine Normal (Normal)
[2017-11-11 11:57] LABS: Basophils # 0.1 K/mcL (0.0-0.2); Basophils % 0.6 %; Hematocrit 42.6 % (35.3-44.9); Hemoglobin 14.2 g/dL (11.5-15.4); Immature Granulocytes % 0.4 % (0-4); Lymphocytes # 0.9 K/mcL (0.6-4.6); Lymphocytes % 6.7 %; Mean Corpuscular HGB Conc 33.3 g/dL (31.6-35.5); Mean Corpuscular Volume 86.9 fL (83.0-100.0); Monocytes # 0.4 K/mcL (0.0-1.3); Monocytes % 3.3 %; Platelet Count 319 K/mcL (140-400); Red Cell Distribution Width 12.8 % (11.5-14.5)
[2017-11-11 12:02] LABS: Prothrombin Time 10.9 Seconds (9.4-12.1)
[2017-11-11 12:05] LABS: Activated Partial Thrombo Time 23.9 Seconds (26.0-36.0)
[2017-11-11 12:22] LABS: Troponin I < 0.03 ng/mL (< 0.04)
[2017-11-11 12:39] LABS: Alanine Aminotransferase 15 Units/L (7-52); Albumin 4.5 g/dL (3.5-5.7); Albumin/Globulin Ratio 1.5 (1.1-2.2); Alkaline Phosphatase 120 Units/L (34-104); Aspartate Amino Transferase 12 Units/L (13-39); BUN/Creatinine Ratio 24 (6-26); Bilirubin,Direct 0.1 mg/dL (0.0-0.2); Bilirubin,Indirect 0.4 mg/dL (0.0-1.2); Bilirubin,Total 0.5 mg/dL (0.3-1.0); Blood Urea Nitrogen 21 mg/dL (6-20); Calcium 9.8 mg/dL (8.6-10.3); Carbon Dioxide 20 mEq/L (23-29); Chloride 102 mEq/L (98-107); Glucose 487 mg/dL (70-105); Lipase 76 Units/L (11-82); Osmolality,Calculated 307 (280-300); Potassium 4.3 mEq/L (3.5-5.1); Sodium 136 mEq/L (136-145); Total Protein 7.5 g/dL (6.4-8.9); eGFR For African Americans > 60 (> 60); eGFR For Non-African Americans > 60 (> 60)
[2017-11-11] MEDS ORDERED: MetroNIDAZOLE 500 MG/100 ML 500 MG/100 ML BAG IVPB ONE (14:12)
[2017-11-11] MEDS ORDERED: Naloxone 0.4 MG/ML INJ IVP PRN (16:24)
[2017-11-11] MEDS ORDERED: NON-FORMULARY MEDICATION 1 EACH EACH (Insulin Lispro [Humalog Kwikpen U-100] 0 UNIT) SQ SCH (17:00)
--- NOTE | 2017-11-11 17:48 | Internal Med History&Physical ---
Date of Encounter: 11/11/17 Time of Encounter: 17:37 Internal Medicine - H&P: HPI Chief complaint: bleeding per rectum Admitted From: Emergency Dept Plans for Post Hospital Care: Home History of present illness: Ms. Quevedo is a 52 year old female who has a past medical history of diabetes, hypertension, dyslipidemia,. Patient also has a background history of for anxiety and depression. Patient presented to emergency department with generalized abdominal pain associated with the bleeding per rectum. Patient also complains of dizziness and presyncopal episode. Patient claims that she had an episode of her diarrhea this morning and along with that an episode of a syncope where she hit her head on a bathtub. At that time patient noted that she had a diarrhea which was grossly bloody in nature. Patient was hospitalized in a month of August at that time she had a similar episode. At that time patient underwent colonoscopy and biopsies were taken. Biopsies from August 2016 were suggestive of ischemic colitis. Patient denies chest pain, nausea, vomiting, dizziness and diarrhea. Workup in the emergency room: Patient was evaluated in the emergency room. Baseline labs were drawn. Stool occult blood is positive. CT head: Negative for any acute changes. CT abdomen pelvis: Colitis of the left hemicolon, splenic artery aneurysm: 0.8 cm. Reason for admission: Bleeding per rectum. Syncopal episode. Possible colitis. Family history: Noncontributory Past Med Surg Social Fam HX - Past Medical History Medical history: diabetes, hyperlipidemia, hypertension Psychiatric history: anxiety, depression - Past Surgical History Surgical History: other - Social History Smoking Status: Never smoker Smokeless Tobacco Status: No Alcohol use: rarely Drug use: none - Family History Father Hx Family Cardiac Disorders: Yes Hx Family Endocrine Disorder: Yes (diabetes) Internal Medicine - H&P: Meds Insulin Glargine,Hum.rec.anlog [Lantus Solostar] 50 unit SQ HS 09/16/16 [History ] Insulin LISPRO [Humalog Kwikpen U-100] 12 - 17 unit SQ QID 09/16/16 [History] LORazepam [Ativan] 0.5 mg PO BID PRN 09/16/16 [History] Metformin HCl [Metformin HCl ER] 2,000 mg PO DAILY 09/16/16 [History] Pantoprazole Sodium [Protonix] 40 mg PO DAILY 09/16/16 [History] Simvastatin [Zocor] 20 mg PO HS 09/16/16 [History] Venlafaxine XR (24 HR) [Effexor Xr] 150 mg PO DAILY 09/16/16 [History] Aspirin [Lo-Dose Aspirin EC] 81 mg PO DAILY 01/12/17 [History] Fluconazole [Diflucan] 150 mg PO QMONTH 11/11/17 [History] Lisinopril [Zestril] 20 mg PO DAILY 11/11/17 [History] Zolpidem [Ambien] 10 mg PO HS PRN 11/11/17 [History] 3 Allergy/AdvReac Type Severity Reaction Status Date / Time cefdinir [From Omnicef] Allergy Hives Verified 11/11/17 15:49 fluoxetine [From Prozac] Allergy Hives Verified 11/11/17 15:49 lansoprazole [From Prevacid] Allergy Hives Verified 11/11/17 15:49 clarithromycin [From Biaxin] AdvReac Hives Verified 11/11/17 15:49 All Systems PM: A 10-system review of systems was performed and is negative for pertinent findings except as documented above in the HPI. - Constitutional Constitutional: lethargy, malaise, weakness, no chills, no fever(s), no night sweats - EENT Eyes: no change in vision, no discharge, no pain, no photophobia Ears: no ear discharge, no ear pain, no tinnitus Nose, mouth and throat: no dysphagia, no nasal discharge, no neck pain, no sore throat - Cardiovascular Cardiovascular ROS IM: no chest pain, no diaphoresis, no dyspnea, no lightheadedness, no palpitations, no syncope - Respiratory Respiratory: no cough, no dyspnea, no wheezing, no excessive phlegm production - Gastrointestinal Gastrointestinal: abdominal pain, hematochezia, no diarrhea, no hematemesis, no melena, no nausea, no vomiting - Genitourinary Genitourinary: no change in urinary stream, no dysuria, no flank pain, no hematuria - Musculoskeletal Musculoskeletal ROS IM: no numbness, no tingling - Integumentary Integumentary IM: no rash, no unusual bruising - Neurological Neurological ROS: no confusion, no convulsions, no focal weakness, no numbness, no tingling, no tremor(s) - Hematologic/Lymphatic Hematologic/Lymphatic: no easy bruising - Constitutional Vitals: Temp Pulse Resp BP Pulse Ox 99.3 F 82 15 175/97 99 11/11/17 17:28 11/11/17 17:28 11/11/17 17:28 11/11/17 17:28 11/11/17 17:28 General appearance: Present: A&O X 3, morbidly obese, pleasant, no acute distress, answers questions appropriately - Head Head exam: Present: atraumatic, normocephalic - Eye Eye exam: Present: PERRL, conjuntiva pink, sclera anicteric Pupils: Present: PERRL - Neck Neck exam general surgery: Present: supple, trachea midline. Absent: lymphadenopathy - Respiratory Respiratory exam: Present: CTAB. Absent: accessory muscle use, rales, rhonchi, wheezes - Cardiovascular Cardiovascular exam: Present: RRR, +S1, +S2. Absent: diastolic murmur, gallop, rubs, systolic murmur - GI/Abdominal GI/Abdominal exam: Present: normal bowel sounds, soft, no peritoneal signs. Absent: distended, tenderness - Extremities Exam Extremities exam: Present: warm, radial pulses palpable and symmetrical. Absent : calf tenderness, cyanotic, pedal edema - Neurological Exam Neurological exam: Present: CN II-XII intact, oriented X3, no focal deficits. Absent: pronater drift, facial droop, speech deficit - Skin Skin exam: Present: dry, intact Internal Med - H&P Results - Labs CBC & Chem 7: 11/11/17 11:20 11/11/17 11:20 - Assessment and plan (1) Colitis Current Visit: Yes Status: Acute Assessment and plan: 52/female Multiple comorbid conditions. Admitted with bleeding per rectum. Syncopal episode is likely secondary to the bleeding per rectum. Noted that patient's hemoglobin is 14.2 Her blood pressure is above normal limit but within acceptable range. Patient was not keen to get hospitalized but her insisted. Plan: Admit as inpatient. Serial CBC. Close monitoring of the blood pressure. If hemoglobin less than 7 then please consider transfusion. Clear liquid diet. GI consult. I have informed and he will do the needful. Nothing by mouth from Monday midnight. Possible endoscopy Monday morning. I examined this patient in the emergency department room #10. Plan of care explained to the patient. Patient's was at bedside. The verbalize understanding. (2) Rectal bleeding Current Visit: Yes Status: Acute Assessment and plan: Please see above (3) Essential hypertension Current Visit: No Status: Chronic Assessment and plan: Patient is known to have a hypertension. We will resume home medications. During this hospitalized and we will closely monitor patient's blood pressure. We will do changes in medication accordingly if needed. (4) Diabetes mellitus Current Visit: No Status: Chronic Assessment and plan: Patient does have her type 2 diabetes mellitus. At this point we will resume home medication. We will closely monitor the patient's blood glucose during this hospitalization. 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 We will get lipid panel tomorrow morning. We will resume patient's home medication that is statins. Qualifiers: Hyperlipidemia type: mixed hyperlipidemia Qualified Code(s): E78.2 - Mixed hyperlipidemia (6) DVT prophylaxis Current Visit: Yes Status: Acute Assessment and plan: This patient is not a candidate for pharmacological DVT prophylaxis in view of underlying GI bleeding. Antiembolic stockings provided. Medical decision making: This patient has a moderate to severe risk of worsening in spite of being on appropriate treatment/medication due to the underlying chronic comorbid conditions. - Time Spent With Patient Total time spent is greater than 50% in coordination of care (as documented) at patient's floor/unit and/or counseling patient:
[2017-11-11] MEDS ORDERED: Dextrose Gel 15 GM/37.5 ML TUBE PO PRN ×2 (17:58)
[2017-11-11] MEDS ORDERED: *HR* Dextrose 50 % in Water (Syg) 50 ML SYRINGE IVP PRN (17:58)
[2017-11-11] MEDS ORDERED: D5% in Water 1,000 ML IVC PRN (17:58)
[2017-11-11] MEDS: 0.9 % Sodium Chloride 1,000 ML IVC SCH (18:00)
[2017-11-11] MEDS: Insulin DETEMIR 100 UNIT/ML X5UNITS SQ SCH (20:43)
[2017-11-11] MEDS: Insulin LISPRO 300 UNITS/3 ML VIAL SQ SCH (20:44)
[2017-11-11] MEDS: Acetaminophen 325 MG TABLET PO PRN (21:44)
[2017-11-11] MEDS: Ondansetron 4 MG/2 ML VIAL IVP PRN (21:50)
[2017-11-11] MEDS: MetroNIDAZOLE 500 MG/100 ML 500 MG/100 ML BAG IVPB SCH (23:45)
[2017-11-12 01:14] LABS: Basophils # 0.1 K/mcL (0.0-0.2); Basophils % 0.7 %; Eosinophils % 0.3 %; Hematocrit 36.1 % (35.3-44.9); Hemoglobin 12.3 g/dL (11.5-15.4); Immature Granulocytes % 0.5 % (0-4); Lymphocytes # 3.5 K/mcL (0.6-4.6); Lymphocytes % 34.9 %; Mean Corpuscular HGB Conc 34.1 g/dL (31.6-35.5); Mean Corpuscular Hemoglobin 29.6 pg (28.0-33.3); Mean Platelet Volume 10.1 fL (9.4-12.4); Monocytes # 0.9 K/mcL (0.0-1.3); Monocytes % 9.2 %; Neutrophils # 5.4 K/mcL (1.6-8.9); Platelet Count 290 K/mcL (140-400); Red Blood Count 4.15 M/mcL (3.82-4.97); Red Cell Distribution Width 12.9 % (11.5-14.5); Segmented Neutrophils % 54.4 %
[2017-11-12 01:18] LABS: INR 1.1; Prothrombin Time 12.2 Seconds (9.4-12.1)
[2017-11-12 01:21] LABS: Activated Partial Thrombo Time 25.1 Seconds (26.0-36.0)
[2017-11-12 01:33] LABS: Alanine Aminotransferase 11 Units/L (7-52); Albumin 3.9 g/dL (3.5-5.7); Albumin/Globulin Ratio 1.4 (1.1-2.2); Alkaline Phosphatase 89 Units/L (34-104); Aspartate Amino Transferase 11 Units/L (13-39); BUN/Creatinine Ratio 22 (6-26); Bilirubin,Total 0.5 mg/dL (0.3-1.0); Blood Urea Nitrogen 15 mg/dL (6-20); Calcium 9.1 mg/dL (8.6-10.3); Carbon Dioxide 24 mEq/L (23-29); Chloride 106 mEq/L (98-107); Chol/HDL Ratio 3.9 (0-4.9); Cholesterol 208 mg/dL (< 200); Globulin 2.7 g/dL (2.4-3.5); Glucose 224 mg/dL (70-105); HDL Cholesterol 53 mg/dL (40-59); LDL Cholesterol,Calculated 133 mg/dL (0-99); Magnesium 1.6 mg/dL (1.6-2.6); Osmolality,Calculated 294 (280-300); Phosphorous 3.6 mg/dL (2.7-4.5); Potassium 3.5 mEq/L (3.5-5.1); Sodium 138 mEq/L (136-145); Total Protein 6.6 g/dL (6.4-8.9); Triglycerides 108 mg/dL (< 150); eGFR For African Americans > 60 (> 60); eGFR For Non-African Americans > 60 (> 60)
[2017-11-12] MEDS: MetroNIDAZOLE 500 MG/100 ML 500 MG/100 ML BAG IVPB SCH ×2 (07:49→15:43)
[2017-11-12] MEDS: Venlafaxine XR (24 HR) 150 MG CAP.ER.24H PO SCH (07:50)
[2017-11-12] MEDS: Lisinopril 20 MG TABLET PO SCH (07:51)
[2017-11-12] MEDS: Acetaminophen 325 MG TABLET PO PRN ×3 (07:51→21:49)
[2017-11-12] MEDS: Insulin LISPRO 300 UNITS/3 ML VIAL SQ SCH ×4 (08:26→21:50)
[2017-11-12] MEDS: 0.9 % Sodium Chloride 1,000 ML IVC SCH (09:43)
--- NOTE | 2017-11-12 16:22 | Internal Med Progress Note ---
Date of Encounter: 11/12/17 Time of Encounter: 16:18 - Assessment and plan (1) Colitis Current Visit: Yes Status: Acute Assessment and plan: Continue Cipro/Flagyl Continue close monitoring of H&H, f/u CBC GI consulted, recommendations appreciated, NPO tonight for possible EGD tomorrow. (2) Rectal bleeding Current Visit: Yes Status: Acute Assessment and plan: Please see above Note hemoglobin was 14.2 on amdission now 12.3 likely hemodilutional as patient did have approx +3.5L IV fluids She is hemodynamically stable (3) Essential hypertension Current Visit: No Status: Chronic Assessment and plan: Patient is known to have a hypertension. Continue home medications. Add hydralazine prn since patient will be NPO (4) Diabetes mellitus Current Visit: No Status: Chronic Assessment and plan: Resume home medications ISS Diabetic diet when is eating Qualifiers: Diabetes mellitus type: type 2 Diabetes mellitus intermodal customer service insulin use: with intermodal customer service use Diabetes mellitus complication status: with hyperglycemia Qualified Code(s): E11.65 - Type 2 diabetes mellitus with hyperglycemia; Z79.4 - [facility] (current) use of insulin (5) Hyperlipidemia Current Visit: No Status: Chronic Assessment and plan: Patient does have a hyperlipidemia. We will get lipid panel tomorrow morning. We will resume patient's home medication that is statins. Qualifiers: Hyperlipidemia type: mixed hyperlipidemia Qualified Code(s): E78.2 - Mixed hyperlipidemia (6) DVT prophylaxis Current Visit: Yes Status: Acute Assessment and plan: This patient is not a candidate for pharmacological DVT prophylaxis in view of underlying GI bleeding. SCDs Medical decision making: This patient has a moderate to severe risk of worsening in spite of being on appropriate treatment/medication due to the underlying chronic comorbid conditions. - Time Spent With Patient Total time spent is greater than 50% in coordination of care (as documented) at patient's floor/unit and/or counseling patient: - Subjective Interval history: No acute events overnight. Patient did note she still did have a small amount mucus stool with blood in it today. Denies fevers/chills, n/v, chest pain, shortness of breath, abdominal pain. - Constitutional Vitals: Temp Pulse Resp BP Pulse Ox 98.1 F 87 14 174/77 96 11/12/17 16:09 11/12/17 16:09 11/12/17 16:09 11/12/17 16:09 11/12/17 16:09 General appearance: Present: A&O X 3, morbidly obese, pleasant, no acute distress, answers questions appropriately - Head Head exam: Present: normocephalic Additional comments: left contusion around left periorbital area - Eye Eye exam: Present: PERRL, conjuntiva pink, sclera anicteric Pupils: Present: PERRL - Neck Neck exam general surgery: Present: supple, trachea midline. Absent: lymphadenopathy - Respiratory Respiratory exam: Present: CTAB. Absent: accessory muscle use, rales, rhonchi, wheezes - Cardiovascular Cardiovascular exam: Present: RRR, +S1, +S2. Absent: diastolic murmur, gallop, rubs, systolic murmur - GI/Abdominal GI/Abdominal exam: Present: normal bowel sounds, soft, no peritoneal signs. Absent: distended, tenderness - Extremities Exam Extremities exam: Present: warm, radial pulses palpable and symmetrical. Absent : calf tenderness, cyanotic, pedal edema - Neurological Exam Neurological exam: Present: CN II-XII intact, oriented X3, no focal deficits. Absent: pronater drift, facial droop, speech deficit - Skin Skin exam: Present: dry, intact Internal Medicine: Result - Labs CBC & Chem 7: 11/12/17 00:23 11/12/17 00:23 Labs: Short CBC 11/12/17 Range/Units 00:23 WBC 10.0 (4.3-11.1) K/mcL Hgb 12.3 D (11.5-15.4) g/dL Hct 36.1 (35.3-44.9) % Plt Count 290 (140-400) K/mcL Neutrophils # 5.4 (1.6-8.9) K/mcL BMP 11/12/17 00:23 Sodium 138 Potassium 3.5 Chloride 106 Carbon Dioxide 24 BUN 15 Creatinine 0.69 Glucose 224 H Calcium 9.1 Cardiac Enzymes 11/11/17 11/12/17 11/12/17 Range/Units 17:58 00:23 06:12 Troponin I < 0.03 < 0.03 < 0.03 (< 0.04) ng/mL Liver Function 11/12/17 Range/Units 00:23 Total Bilirubin 0.5 (0.3-1.0) mg/dL AST 11 L (13-39) Units/L ALT 11 (7-52) Units/L Alkaline Phosphatase 89 (34-104) Units/L Albumin 3.9 (3.5-5.7) g/dL - ABG Interpretation ABG results: PT/INR, D-dimer PT 12.2 Seconds (9.4-12.1) H 11/12/17 00:23 Consult Discharge Plan - Plan Referrals: Simeon Anthony MD [Primary Care Provider] -
[2017-11-12] MEDS: Ondansetron 4 MG/2 ML VIAL IVP PRN (21:49)
[2017-11-12] MEDS: Insulin DETEMIR 100 UNIT/ML X5UNITS SQ SCH (21:50)
[2017-11-13] MEDS: MetroNIDAZOLE 500 MG/100 ML 500 MG/100 ML BAG IVPB SCH ×3 (00:16→15:46)
[2017-11-13 05:13] LABS: Basophils # 0.1 K/mcL (0.0-0.2); Eosinophils # 0.1 K/mcL (0.0-0.6); Eosinophils % 0.9 %; Hematocrit 36.8 % (35.3-44.9); Hemoglobin 12.6 g/dL (11.5-15.4); Immature Granulocytes % 0.3 % (0-4); Lymphocytes # 3.1 K/mcL (0.6-4.6); Lymphocytes % 35.1 %; Mean Corpuscular HGB Conc 34.2 g/dL (31.6-35.5); Mean Corpuscular Hemoglobin 29.8 pg (28.0-33.3); Mean Platelet Volume 9.8 fL (9.4-12.4); Monocytes # 0.7 K/mcL (0.0-1.3); Monocytes % 7.6 %; Neutrophils # 4.9 K/mcL (1.6-8.9); Platelet Count 269 K/mcL (140-400); Red Blood Count 4.23 M/mcL (3.82-4.97); Red Cell Distribution Width 12.9 % (11.5-14.5); Segmented Neutrophils % 55.1 %
[2017-11-13 05:32] LABS: BUN/Creatinine Ratio 10 (6-26); Blood Urea Nitrogen 6 mg/dL (6-20); Calcium 9.1 mg/dL (8.6-10.3); Carbon Dioxide 25 mEq/L (23-29); Chloride 109 mEq/L (98-107); Glucose 157 mg/dL (70-105); Osmolality,Calculated 289 (280-300); Potassium 3.5 mEq/L (3.5-5.1); Sodium 139 mEq/L (136-145); eGFR For African Americans > 60 (> 60); eGFR For Non-African Americans > 60 (> 60)
[2017-11-13] MEDS: Venlafaxine XR (24 HR) 150 MG CAP.ER.24H PO SCH (09:07)
[2017-11-13] MEDS: Insulin LISPRO 300 UNITS/3 ML VIAL SQ SCH ×3 (09:07→19:24)
[2017-11-13] MEDS: Lisinopril 20 MG TABLET PO SCH (09:07)
[2017-11-13] MEDS: Acetaminophen 325 MG TABLET PO PRN ×2 (09:11→17:16)
--- NOTE | 2017-11-13 09:16 | Internal Med Progress Note ---
Date of Encounter: 11/13/17 Time of Encounter: 09:13 - Assessment and plan (1) Colitis Current Visit: Yes Status: Acute Assessment and plan: Hemodynamically stable, no signs of acute infection or hypovolemia Continue Cipro/Flagyl GI consulted, recommendations appreciated, Possibly endoscopy today (2) Rectal bleeding Current Visit: Yes Status: Acute Assessment and plan: Please see above Hemoglobin stable Hemodynamically stable. Continue supportive care, follow-up GI recs. (3) Essential hypertension Current Visit: No Status: Chronic Assessment and plan: Continue home medications. 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 We will get lipid panel tomorrow morning. We will resume patient's home medication that is statins. Qualifiers: Hyperlipidemia type: mixed hyperlipidemia Qualified Code(s): E78.2 - Mixed hyperlipidemia (6) DVT prophylaxis Current Visit: Yes Status: Acute Assessment and plan: SCDs Medical decision making: This patient has a moderate to severe risk of worsening in spite of being on appropriate treatment/medication due to the underlying chronic comorbid conditions. - Time Spent With Patient Total time spent is greater than 50% in coordination of care (as documented) at patient's floor/unit and/or counseling patient: - Subjective Interval history: No acute events overnight. Patient complains of headache. Had one episode of mucus-like stool with bright red blood. Denies CP, SOB, fevers/chills, abdominal pain. - Constitutional Vitals: Temp Pulse Resp BP Pulse Ox 98.7 F 83 17 157/85 97 11/13/17 07:24 11/13/17 07:24 11/13/17 07:24 11/13/17 07:24 11/13/17 07:24 General appearance: Present: A&O X 3, morbidly obese, pleasant, no acute distress, answers questions appropriately - Head Head exam: Present: atraumatic, normocephalic - Eye Eye exam: Present: PERRL, conjuntiva pink, sclera anicteric Pupils: Present: PERRL - Neck Neck exam general surgery: Present: supple, trachea midline. Absent: lymphadenopathy - Respiratory Respiratory exam: Present: CTAB. Absent: accessory muscle use, rales, rhonchi, wheezes - Cardiovascular Cardiovascular exam: Present: RRR, +S1, +S2. Absent: diastolic murmur, gallop, rubs, systolic murmur - GI/Abdominal GI/Abdominal exam: Present: normal bowel sounds, soft, no peritoneal signs. Absent: distended, tenderness - Extremities Exam Extremities exam: Present: warm, radial pulses palpable and symmetrical. Absent : calf tenderness, cyanotic, pedal edema - Neurological Exam Neurological exam: Present: CN II-XII intact, oriented X3, no focal deficits. Absent: pronater drift, facial droop, speech deficit - Skin Skin exam: Present: dry, intact Internal Medicine: Result - Labs CBC & Chem 7: 11/13/17 04:38 11/13/17 04:38 Labs: Short CBC 11/13/17 Range/Units 04:38 WBC 8.8 (4.3-11.1) K/mcL Hgb 12.6 (11.5-15.4) g/dL Hct 36.8 (35.3-44.9) % Plt Count 269 (140-400) K/mcL Neutrophils # 4.9 (1.6-8.9) K/mcL BMP 11/13/17 04:38 Sodium 139 Potassium 3.5 Chloride 109 H Carbon Dioxide 25 BUN 6 Creatinine 0.63 Glucose 157 H Calcium 9.1 - ABG Interpretation ABG results: PT/INR, D-dimer PT 12.2 Seconds (9.4-12.1) H 11/12/17 00:23 Consult Discharge Plan - Plan Referrals: Simeon Anthony MD [Primary Care Provider] -
--- NOTE | 2017-11-13 10:51 | Gastroenterology Consult Note ---
<Krysten Neves - Last Filed: 11/13/17 10:45> Date of Encounter: 11/13/17 Time of Encounter: 09:45 - Assessment and plan (1) Rectal bleeding Status: Acute Assessment and plan: Pt presents with abdominal pain, and bright red rectal bleeding. She states she has had symptoms since she was 14 years old and was diagnosed with IBS. She had ischemic colitis 09/16. She has had episodic flares since then. She needs colonoscopy to rule out AVMs, inflammatory bowel disease. Will also order labs for inflammatory markers, and stool workup. - Time Spent With Patient Total time spent is greater than 50% in coordination of care (as documented) at patient's floor/unit and/or counseling patient: GI History of Present Illness - Data of Consult Patient: new to practice Consult date: 11/13/17 Requesting Physician: Donny Hung - Consult Narrative Reason for consult: rectal bleeding History of present illness: Ms. Quevedo is a 52 year old female who has a past medical history of diabetes, hypertension, dyslipidemia, anxiety and depression. Patient presented to emergency department with generalized abdominal pain associated with the bleeding per rectum. Patient also complains of dizziness and presyncopal episode. Patient claims that she had an episode of her diarrhea this morning and along with that an episode of a syncope where she hit her head on a bathtub. At that time patient noted that she had a diarrhea which was grossly bloody in nature. Patient was hospitalized in August 2016 with a similar episode. Colonoscopy at that time was suggestive of ischemic colitis. She states she has had a couple episodes of abdominal pain and diarrhea since last year, but denies any rectal bleeding until this episode. Patient denies chest pain. She also complains of some nausea and vomiting. Stool occult blood is positive. CT abdomen and pelvis showed Colitis of the left hemicolon, splenic artery aneurysm: 0.8 cm. Colon: 09/16 [place], nodule in descending colon, diffuse severe inflammation in colon biopsy consistent with ischemic colitis with ulceration and acute inflammation NSAIDS: baby asa Past Med Surg Social Fam HX - Past Medical History Medical history: diabetes, hyperlipidemia, hypertension Psychiatric history: anxiety, depression - Past Surgical History Surgical History: other - Social History Smoking Status: Never smoker Smokeless Tobacco Status: No Alcohol use: rarely Drug use: none - Family History Father Hx Family Cardiac Disorders: Yes Hx Family Endocrine Disorder: Yes (diabetes) Review of Systems: GI: as per [place] GENERAL: denies fever, has some chills EYES: denies yellow discoloration ENT: denies pain with swallowing or difficulty swallowing CARDIO: denies chest pain, palpitations RESP: No Shortness of breath with exertion : denies change in color of urine NEURO: denies any weakness HEME: Denies any bruising MS: denies joint pain, joint swelling or back pain. DERM: denies rash or itching PSYCH: history of anxiety or depression - Constitutional Vitals: Temp Pulse Resp BP Pulse Ox 98.7 F 83 17 157/85 97 11/13/17 07:24 11/13/17 07:24 11/13/17 07:24 11/13/17 07:24 11/13/17 07:24 Exam: CONSTITUTIONAL:~alert, no acute distress.~HEAD:~normocephalic.~EYES:~no jaundice.~NECK:~no obvious swelling.~HEART:~regular rate and rhythm, no murmurs. ~LUNGS:~bilateral good air entry.~ABDOMEN:~distended, soft, tender, no masses palpable, no organomegaly.~RECTAL EXAM:~Deferred.~EXTREMITIES:~no clubbing, cyanosis or edema.~SKIN:~no stigmata of chronic liver disease, pallor noted, facial acne noted.~NEUROLOGIC:~no obvious focal defect.~~~~ Results - Labs CBC & Chem 7: 11/13/17 04:38 11/13/17 04:38 Labs: Last Result Calcium 9.1 mg/dL (8.6-10.3) 11/13/17 04:38 Troponin I < 0.03 ng/mL (< 0.04) 11/12/17 06:12 Triglycerides 108 mg/dL (< 150) 11/12/17 00:23 Stool Occult Blood Positive (Negative) A 11/11/17 12:23 Entire Visit Hgb 12.6 g/dL (11.5-15.4) 11/13/17 04:38 Hct 36.8 % (35.3-44.9) 11/13/17 04:38 PT 12.2 Seconds (9.4-12.1) H 11/12/17 00:23 Total Bilirubin 0.5 mg/dL (0.3-1.0) 11/12/17 00:23 AST 11 Units/L (13-39) L 11/12/17 00:23 ALT 11 Units/L (7-52) 11/12/17 00:23 Lipase 76 Units/L (11-82) 11/11/17 11:20 - ABG ABG results: PT/INR, D-dimer PT 12.2 Seconds (9.4-12.1) H 11/12/17 00:23 Consult Discharge Plan - Plan Instructions: Rectal Bleeding (DC) Referrals: Simeon Anthony MD [Primary Care Provider] - 11/24/17 4:00 pm ( New Number- [phone]) Prescriptions: metroNIDAZOLE [Metronidazole] 500 mg PO Q8HR 5 Days #15 tablet Ciprofloxacin HCl [Cipro] 500 mg PO BID #10 tablet <Buster Barajas - Last Filed: 11/21/17 18:18> Date of Encounter: 11/13/17 - Time Spent With Patient Total time spent is greater than 50% in coordination of care (as documented) at patient's floor/unit and/or counseling patient: GI History of Present Illness - Data of Consult Requesting Physician: Donny Hung - Consult Narrative History of present illness: Ms. Quevedo is a 52 year old female - Constitutional Vitals: Temp Pulse Resp BP Pulse Ox 98.2 F 98 16 153/85 94 11/14/17 14:30 11/14/17 14:30 11/14/17 14:30 11/14/17 14:30 11/14/17 14:30 Results - Labs CBC & Chem 7: 11/14/17 05:28 11/13/17 04:38 Labs: Last Result ESR 14 mm/hr (0-15) 11/13/17 11:27 Calcium 9.1 mg/dL (8.6-10.3) 11/13/17 04:38 Troponin I < 0.03 ng/mL (< 0.04) 11/12/17 06:12 C-Reactive Protein 11 mg/L (Less than 10) H 11/13/17 11:27 Triglycerides 108 mg/dL (< 150) 11/12/17 00:23 Stool Occult Blood Positive (Negative) A 11/11/17 12:23 Entire Visit Hgb 13.8 g/dL (11.5-15.4) 11/14/17 05:28 Hct 39.6 % (35.3-44.9) 11/14/17 05:28 PT 12.2 Seconds (9.4-12.1) H 11/12/17 00:23 Total Bilirubin 0.5 mg/dL (0.3-1.0) 11/12/17 00:23 AST 11 Units/L (13-39) L 11/12/17 00:23 ALT 11 Units/L (7-52) 11/12/17 00:23 Lipase 76 Units/L (11-82) 11/11/17 11:20 - ABG ABG results: PT/INR, D-dimer PT 12.2 Seconds (9.4-12.1) H 11/12/17 00:23 - Attending Attestation Ms. Quevedo is a very pleasant 52-year-old female who comes in with lightheadedness and history of chronic constipation and obstipation. She had episodes of bright red bleeding per rectum and advanced and some lower abdominal cramping since his admission she was here in April and colonoscopy that time revealed ischemic colitis. I suspect that it is the same problem again and will plan colonoscopy after lavage. Further recommendations after endoscopy. Thank you for this I have personally performed a face to face evaluation on this patient. I have reviewed and agree with the care plan. History and Exam by me shows:consultation
[2017-11-13] MEDS ORDERED: Polyethylene Glycol 3350 255 GM POWDER PO ONE (15:00)
--- NOTE | 2017-11-13 15:32 | Electrocardiograph Report ---
[address] [address] Test Date: 2017-11-11 Pat Name: Asuncion Quevedo Department: 103 Room: 3A63 Gender: F Playground Supervisor: : 1965 Requested By: Seferino Moffett Order Number: [id number] Reading MD: Seferino Owens Measurements Intervals [place] Rate: 88 P: 9 [place]: 136 QRS: 44 QRSD: 94 T: 3 QT: 374 QTc: 419 Interpretive Statements SINUS RHYTHM Electronically Signed On 11-13-2017 15:30:36 EDT by Seferino Owens
[2017-11-13] MEDS: Ondansetron 4 MG/2 ML VIAL IVP PRN (15:46)
[2017-11-13] MEDS ORDERED: Ondansetron 4 MG/2 ML VIAL IVP PRN (18:19)
[2017-11-13 19:12] LABS: Adenovirus F 40/41 PCR Not detected (Not detect); Astrovirus PCR Not detected (Not detect); C.difficile Toxin A/B by PCR Not detected (Not detect); Campylobacter by PCR Not detected (Not detect); Cryptosporidium by PCR Not detected (Not detect); Cyclospora cayetanensis PCR Not detected (Not detect); E. coli O157 by PCR Not detected (Not detect); Entamoeba histolytica PCR Not detected (Not detect); Enteroaggregative E.coli(EAEC) Not detected (Not detect); Enteropathogenic E.coli(EPEC) Not detected (Not detect); Enterotoxigenic E.coli (ETEC) Not detected (Not detect); Giardia lamblia PCR Not detected (Not detect); Norovirus GI/GII PCR Not detected (Not detect); Plesiomonas shigelloides PCR Not detected (Not detect); Rotavirus A PCR Not detected (Not detect); Salmonella PCR Not detected (Not detect); Sapovirus PCR Not detected (Not detect); Shig/EnteroinvasiveE coli EIEC Not detected (Not detect); Shigalike tox-prod E coli STEC Not detected (Not detect); Vibrio PCR Not detected (Not detect); Vibrio cholerae PCR Not detected (Not detect); Yersinia enterocolitica PCR Not detected (Not detect)
[2017-11-13] MEDS ORDERED: Insulin DETEMIR 100 UNIT/ML X5UNITS SQ SCH (21:00)
[2017-11-13] MEDS ORDERED: Acetaminophen IV 1,000 MG/100 ML INFUS..BTL IVPB ONE (22:40)
[2017-11-14] MEDS: *HR* Promethazine 25 MG/ML VIAL IVP PRN ×2 (00:41→08:17)
[2017-11-14] MEDS: Pantoprazole 40 MG VIAL IVP SCH ×2 (00:41→12:02)
[2017-11-14] MEDS: MetroNIDAZOLE 500 MG/100 ML 500 MG/100 ML BAG IVPB SCH ×3 (00:41→16:02)
[2017-11-14] MEDS: Insulin LISPRO 300 UNITS/3 ML VIAL SQ SCH ×3 (00:42→12:02)
[2017-11-14] MEDS ORDERED: Acetaminophen 325 MG TABLET PO PRN (03:33)
[2017-11-14] MEDS: Ondansetron 4 MG/2 ML VIAL IVP PRN (05:47)
[2017-11-14 06:02] LABS: Basophils # 0.1 K/mcL (0.0-0.2); Basophils % 0.7 %; Eosinophils % 0.3 %; Hematocrit 39.6 % (35.3-44.9); Hemoglobin 13.8 g/dL (11.5-15.4); Immature Granulocytes % 0.7 % (0-4); Lymphocytes # 3.9 K/mcL (0.6-4.6); Lymphocytes % 33.3 %; Mean Corpuscular HGB Conc 34.8 g/dL (31.6-35.5); Mean Corpuscular Hemoglobin 30.5 pg (28.0-33.3); Mean Corpuscular Volume 87.4 fL (83.0-100.0); Mean Platelet Volume 10.3 fL (9.4-12.4); Monocytes % 8.3 %; Neutrophils # 6.5 K/mcL (1.6-8.9); Platelet Count 260 K/mcL (140-400); Red Blood Count 4.53 M/mcL (3.82-4.97); Red Cell Distribution Width 13.1 % (11.5-14.5); Segmented Neutrophils % 56.7 %
[2017-11-14] MEDS: Lisinopril 20 MG TABLET PO SCH (07:56)
[2017-11-14] MEDS: Venlafaxine XR (24 HR) 150 MG CAP.ER.24H PO SCH (07:56)
--- NOTE | 2017-11-14 11:38 | Internal Med Progress Note ---
Date of Encounter: 11/14/17 Time of Encounter: 11:30 - Assessment and plan (1) Colitis Current Visit: Yes Status: Acute Assessment and plan: Hemodynamically stable, no signs of acute infection or hypovolemia Continue Cipro/Flagyl GI consulted, recommendations appreciated. Plan for colonoscopy today (2) Rectal bleeding Current Visit: Yes Status: Acute Assessment and plan: Please see above Hemoglobin stable Hemodynamically stable. Continue supportive care, follow-up GI recs. (3) Essential hypertension Current Visit: No Status: Chronic Assessment and plan: Continue home medications. Add hydralazine prn since patient will be NPO (4) Diabetes mellitus Current Visit: No Status: Chronic Assessment and plan: Resume home medications ISS Diabetic diet when is eating Qualifiers: Diabetes mellitus type: type 2 Diabetes mellitus assisted insulin use: with assisted use Diabetes mellitus complication status: with hyperglycemia Qualified Code(s): E11.65 - Type 2 diabetes mellitus with hyperglycemia; Z79.4 - FDC (current) use of insulin (5) Hyperlipidemia Current Visit: No Status: Chronic Assessment and plan: Patient does have a hyperlipidemia. We will get lipid panel tomorrow morning. We will resume patient's home medication that is statins. Qualifiers: Hyperlipidemia type: mixed hyperlipidemia Qualified Code(s): E78.2 - Mixed hyperlipidemia (6) DVT prophylaxis Current Visit: Yes Status: Acute Assessment and plan: SCDs Medical decision making: This patient has a moderate to severe risk of worsening in spite of being on appropriate treatment/medication due to the underlying chronic comorbid conditions. - Time Spent With Patient Total time spent is greater than 50% in coordination of care (as documented) at patient's floor/unit and/or counseling patient: - Subjective Interval history: No acute events overnight - Constitutional Vitals: Temp Pulse Resp BP Pulse Ox 98.1 F 68 16 156/83 95 11/14/17 11:07 11/14/17 11:07 11/14/17 11:07 11/14/17 11:07 11/14/17 11:07 General appearance: Present: A&O X 3, morbidly obese, pleasant, no acute distress, answers questions appropriately - Head Head exam: Present: atraumatic, normocephalic - Eye Eye exam: Present: PERRL, conjuntiva pink, sclera anicteric Pupils: Present: PERRL - Neck Neck exam general surgery: Present: supple, trachea midline. Absent: lymphadenopathy - Respiratory Respiratory exam: Present: CTAB. Absent: accessory muscle use, rales, rhonchi, wheezes - Cardiovascular Cardiovascular exam: Present: RRR, +S1, +S2. Absent: diastolic murmur, gallop, rubs, systolic murmur - GI/Abdominal GI/Abdominal exam: Present: normal bowel sounds, soft, no peritoneal signs. Absent: distended, tenderness - Extremities Exam Extremities exam: Present: warm, radial pulses palpable and symmetrical. Absent : calf tenderness, cyanotic, pedal edema - Neurological Exam Neurological exam: Present: CN II-XII intact, oriented X3, no focal deficits. Absent: pronater drift, facial droop, speech deficit - Skin Skin exam: Present: dry, intact Internal Medicine: Result - Labs CBC & Chem 7: 11/14/17 05:28 18 04:38 Labs: Short CBC 11/14/17 Range/Units 05:28 WBC 11.6 H (4.3-11.1) K/mcL Hgb 13.8 (11.5-15.4) g/dL Hct 39.6 (35.3-44.9) % Plt Count 260 (140-400) K/mcL Neutrophils # 6.5 (1.6-8.9) K/mcL - ABG Interpretation ABG results: PT/INR, D-dimer PT 12.2 Seconds (9.4-12.1) H 11/12/17 00:23 Consult Discharge Plan - Plan Referrals: Simeon Anthony MD [Primary Care Provider] - 11/24/17 4:00 pm ( New Number- [phone])
[2017-11-14] MEDS ORDERED: *HR* FentaNYL (PF) 100 MCG/2 ML VIAL ONE (13:10)
[2017-11-14] MEDS ORDERED: *HR* Midazolam HCl 5 MG/5 ML VIAL IVP ONE (13:10)
[2017-11-14] MEDS ORDERED: Tetracaine/Benzocaine/Butamben 200MG/SPRAY (100SPY/BOT) MM ONE (13:25)
[2017-11-14] MEDS ORDERED: *HR* Midazolam HCl 2 MG/2 ML VIAL IVP ONE (13:25)
[2017-11-14] MEDS ORDERED: Simethicone 40 MG/0.6 ML MLS IR ONE (13:25)
[2017-11-14] MEDS ORDERED: *HR* FentaNYL (PF) 100 MCG/2 ML VIAL IVP ONE (13:25)
--- NOTE | 2017-11-14 13:26 | History & Physical Report ---
Date of Encounter: 11/14/17 Time of Encounter: 13:26 24 Hour HP Update - Instructions Instructions: If the History and Physical is less than 30 days old and was completed prior to A.M. admission and or procedure and has NOT been updated on calendar day of procedure please complete this update prior to performing procedure. - Update Patient reports changes in Medical Condition: No Changes in examination, assessment, or condition: No Changes in Medication: No Preop tests/diagnostics Reviewed: Yes Surgery Remains Indicated: Yes Consent for Planned Operative Procedure(s) Verified: Yes - Pre-Operative Checklist Preoperative Checklist Indicated: Yes Prophylactic Antibiotic Ordered: No Home Medications Include Beta Xavier: Yes
[2017-11-14] MEDS ORDERED: 0.9 % Sodium Chloride 500 ML IVC SCH (13:30)
[2017-11-14 14:43] VITALS: BP 153/85
--- NOTE | 2017-11-14 15:20 | Discharge Summary ---
- NOTES TO OUTPATIENT PROVIDER Notes to Outpatient Provider: Follow up with GI within a week Orders not resulted at time of discharge: Pending orders 11/13/17 Calprotectin, Fecal Routine 11/13/17 11:27 RILEY IgG RIK rflx IFA Routine 11/14/17 04:00 BMP [Basic Metabolic Panel] AM 0400 11/14/17 13:50 Surgical Pathology [PTH] Routine 11/15/17 04:00 BMP [Basic Metabolic Panel] AM 0400 Basic Metabolic Panel AM 0400 CBC [Complete Blood Count] [HEME] AM 0400 Complete Blood Count [HEME] AM 0400 11/16/17 04:00 Basic Metabolic Panel AM 0400 CBC [Complete Blood Count] [HEME] AM 04011/17/17 04:00 Basic Metabolic Panel AM 0400 CBC [Complete Blood Count] [HEME] AM 0400 11/18/17 04:00 Basic Metabolic Panel AM 0400 CBC [Complete Blood Count] [HEME] AM 0400 11/19/17 04:00 Basic Metabolic Panel AM 0400 CBC [Complete Blood Count] [HEME] AM 0400 11/20/17 04:00 Basic Metabolic Panel AM 0400 CBC [Complete Blood Count] [HEME] AM 0400 Date of Encounter: 11/14/17 Time of Encounter: 15:15 - Discharge Diagnosis (1) Colitis Priority: Primary Status: Acute Assessment and Plan: 52 year old female with pmh of htn , diabetes came in with generalized abdominal pain with bleeding per rectum. Hemodynamically stable, no signs of acute infection or hypovolemia.She was started on cipro and flagyl for colitis. GI consulted who did a colonoscopy. Colonscopy a few ulcers in sigmoid colon whic were biopsied. Gi recommened outpatient f/u in 2 weeks. She will be discharged to complete a course of ciprofloxacin and flagyl (2) Rectal bleeding Priority: Secondary Status: Acute Assessment and Plan: Please see above Hemoglobin stable Hemodynamically stable. Continue supportive care, follow-up GI recs. (3) Essential hypertension Priority: Secondary Status: Chronic Assessment and Plan: Continue home medications. Add hydralazine prn since patient will be NPO (4) Diabetes mellitus Priority: Secondary Status: Chronic Assessment and Plan: Resume home medications ISS Diabetic diet when is eating Qualifiers: Diabetes mellitus type: type 2 Diabetes mellitus shelter insulin use: with terminal operations manager use Diabetes mellitus complication status: with hyperglycemia Qualified Code(s): E11.65 - Type 2 diabetes mellitus with hyperglycemia; Z79.4 - remote computer terminal operator (current) use of insulin (5) Hyperlipidemia Priority: Secondary Status: Chronic Assessment and Plan: Patient does have a hyperlipidemia. We will get lipid panel tomorrow morning. We will resume patient's home medication that is statins. Qualifiers: Hyperlipidemia type: mixed hyperlipidemia Qualified Code(s): E78.2 - Mixed hyperlipidemia (6) DVT prophylaxis Priority: Secondary Status: Acute Assessment and Plan: SCDs Medical decision making: This patient has a moderate to severe risk of worsening in spite of being on appropriate treatment/medication due to the underlying chronic comorbid conditions. Hospital course: Ms. Quevedo is a 52 year old female - Time Spent with Patient Total time spent providing and/or coordinating discharge services: - Discharge Medications Prescriptions: metroNIDAZOLE [Metronidazole] 500 mg PO Q8HR 5 Days #15 tablet Ciprofloxacin HCl [Cipro] 500 mg PO BID #10 tablet Home Medications: Insulin Glargine,Hum.rec.anlog [Lantus Solostar] 50 unit SQ HS 09/16/16 [History ] Insulin LISPRO [Humalog Kwikpen U-100] 12 - 17 unit SQ QID 09/16/16 [History] LORazepam [Ativan] 0.5 mg PO BID PRN 09/16/16 [History] Metformin HCl [Metformin HCl ER] 2,000 mg PO DAILY 09/16/16 [History] Pantoprazole Sodium [Protonix] 40 mg PO DAILY 09/16/16 [History] Simvastatin [Zocor] 20 mg PO HS 09/16/16 [History] Venlafaxine XR (24 HR) [Effexor Xr] 150 mg PO DAILY 09/16/16 [History] Aspirin [Lo-Dose Aspirin EC] 81 mg PO DAILY 01/12/17 [History] Fluconazole [Diflucan] 150 mg PO QMONTH 11/11/17 [History] Lisinopril [Zestril] 20 mg PO DAILY 11/11/17 [History] Zolpidem [Ambien] 10 mg PO HS PRN 11/11/17 [History] Ciprofloxacin HCl [Cipro] 500 mg PO BID #10 tablet 11/14/17 [Rx] metroNIDAZOLE [Metronidazole] 500 mg PO Q8HR 5 Days #15 tablet 11/14/17 [Rx] Allergies/Adverse Reactions: 3 Allergy/AdvReac Type Severity Reaction Status Date / Time cefdinir [From Omnicef] Allergy Hives Verified 11/11/17 15:49 fluoxetine [From Prozac] Allergy Hives Verified 11/11/17 15:49 lansoprazole [From Prevacid] Allergy Hives Verified 11/11/17 15:49 clarithromycin [From Biaxin] AdvReac Hives Verified 11/11/17 15:49 Date of admission: 11/11/17 15:32 Primary care physician: Simeon Anthony MD Consults: 11/11/17 16:59 Consult to Gastroenterology [CONS] Routine Consulting Provider: [facility] [place] Reason for Consult: Bleeding PA ?Crohn's disease. Sent information to Dr Barajas via email. Call Completed: Yes - Constitutional Vitals: Temp Pulse Resp BP Pulse Ox 98.2 F 98 16 153/85 94 11/14/17 14:30 11/14/17 14:30 11/14/17 14:30 11/14/17 14:30 11/14/17 14:30 General appearance: Present: A&O X 3, morbidly obese, pleasant, no acute distress, answers questions appropriately - Head Head exam: Present: atraumatic, normocephalic - Eye Eye exam: Present: PERRL, conjuntiva pink, sclera anicteric Pupils: Present: PERRL - Neck Neck exam general surgery: Present: supple, trachea midline. Absent: lymphadenopathy - Respiratory Respiratory exam: Present: CTAB. Absent: accessory muscle use, rales, rhonchi, wheezes - Cardiovascular Cardiovascular exam: Present: RRR, +S1, +S2. Absent: diastolic murmur, gallop, rubs, systolic murmur - GI/Abdominal GI/Abdominal exam: Present: normal bowel sounds, soft, no peritoneal signs. Absent: distended, tenderness - Extremities Exam Extremities exam: Present: warm, radial pulses palpable and symmetrical. Absent : calf tenderness, cyanotic, pedal edema - Neurological Exam Neurological exam: Present: CN II-XII intact, oriented X3, no focal deficits. Absent: pronater drift, facial droop, speech deficit - Skin Skin exam: Present: dry, intact - Patient Status Disposition: Home, Self-Care - Discharge Instructions Follow Up With: Simeon Anthony MD [Primary Care Provider] - 11/24/17 4:00 pm ( New Number- [phone])
[2017-11-14] MEDS ORDERED: Pantoprazole 40 MG VIAL IVP SCH (22:32)
[2017-11-16 07:43] LABS: ANA IgG by ELISA NONE DETECTED (None Detected)
== END 2017-11-14 18:01 | disposition home or self-care (01) ==
LOC: 3ANU 10:05 → EMEROO 10:05 → 3ANU 16:53
PROVIDERS: ADMIT Hospitalist; ATTEND Hospitalist